=== PATIENT | female | born 1965 | race Caucasian/White ===

== ENCOUNTER 2016-06-28 09:12 | Day surgery (SDC) | payer OTHER ==
[2016-06-27 12:55] VITALS: BMI 26.6
[2016-06-28 11:18] VITALS: TEMP 98.1
[2016-06-28 11:48] VITALS: BP 109/68; PULSE 63
== END 2016-06-28 11:48 | disposition home or self-care (01) ==
LOC: JASU-ENDO 09:12
PROVIDERS: ATTEND Internal Medicine Gastroenterology
PROC: 0DJ08ZZ Inspection of Upper Intestinal Tract, Via Natural or Artificial Opening Endoscopic (ICD-10-PCS; principal; 2016-06-28 09:30)
DX: K22.2 Esophageal obstruction (principal)
CPT/HCPCS: 84703

== ENCOUNTER 2016-09-06 10:03 | Day surgery (SDC) | payer OTHER ==
[2016-09-06 11:06] VITALS: BMI 25.8
[2016-09-06] MEDS ORDERED: TRIAMCINOLONE ACET 40MG/1ML VIAL ONE (11:39)
[2016-09-06] MEDS ORDERED: PROPOFOL 40 ML ONE (12:14)
[2016-09-06] MEDS ORDERED: LIDOCAINE HCL/PF 2% SDV 5ML VIAL ONE (12:14)
[2016-09-06 13:01] VITALS: TEMP 97.5
[2016-09-06 14:16] VITALS: BP 128/82; PULSE 70
== END 2016-09-06 13:50 | disposition home or self-care (01) ==
LOC: JASU-ENDO 10:03
PROVIDERS: ATTEND Internal Medicine Gastroenterology
PROC: 0D738ZZ Dilation of Lower Esophagus, Via Natural or Artificial Opening Endoscopic (ICD-10-PCS; principal; 2016-09-06 10:30)
DX: K22.2 Esophageal obstruction (principal)
CPT/HCPCS: 84703

== ENCOUNTER 2017-03-21 12:35 | Inpatient (IN) | payer OTHER ==
--- NOTE | 2017-03-21 13:27 | PDOC ---
History of Present Illness <Tori Malhotra - Last Filed: 03/21/17 17:13> - General History Source: Patient Exam Limitations: No Limitations - History of Present Illness Initial Comments: 03/21/17 17:14 The patient is a 52 year old female, with a significant past medical history of Esophageal stricture, HIV (undetectable viral load, on HAART therapy), Anemia, HTN, HLD, Depression who presents to the emergency department with burning epigastric pain and globus sensation for the past 2 days. Patient reports eating chicken nuggets 2 days ago and experienced sudden onset of throat pain secondary to food stuck in her throat. Patient states her pain is similar to what she experiences with esophageal strictures. Patient reports multiple episodes of nausea, vomiting (foamy,nonbloody, nonbilious) since yesterday with fever (Tmax 100.3) and chills. Patient visited PCP at [facility] and was sent in for further evaluation. She denies headache or dizziness. She denies diarrhea or constipation. She denies dysuria, frequency, urgency or hematuria. Allergies: NKA Past surgical history: None Social history: Current everyday smoker, cocaine use PCP: Dulce Jaime <Bridget Prado - Last Filed: 03/21/17 17:16> - General Chief Complaint: Chest Pain Stated Complaint: CHEST PAIN VOMITING Time Seen by Provider: 03/21/17 13:01 Past History - Past Medical History Anemia: Yes Asthma: No Cancer: No Cardiac Disorders: No CVA: No COPD: No CHF: No Dementia: No Diabetes: No GI Disorders: Yes (STRCTURE OF THE ESOPHAGUS,GASTRITIS) Disorders: No HTN: Yes Hypercholesterolemia: Yes Liver Disease: No Seizures: No Thyroid Disease: No Lung CA: Yes (depression) - Surgical History Abdominal Surgery: No Appendectomy: No Cardiac Surgery: No Cholecystectomy: Yes Lung Surgery: No Neurologic Surgery: No Orthopedic Surgery: No - Suicide/Smoking/Psychosocial Hx Smoking History: Current every day smoker Have you smoked in the past 12 months: Yes Number of Cigarettes Smoked Daily: 1 Cigars Per Day: 0 Information on smoking cessation initiated: No 'Breaking Loose' booklet given: 06/28/16 Hx Alcohol Use: No Drug/Substance Use Hx: Yes Substance Use Type: Cocaine (no use x 3 d) Hx Substance Use Treatment: Yes ([facility]) <Tori Malhotra - Last Filed: 03/21/17 17:13> <Bridget Prado - Last Filed: 03/21/17 17:16> - Past Medical History Allergies/Adverse Reactions: Allergies Allergy/AdvReac Type Severity Reaction Status Date / Time No Known Allergies Allergy Verified 03/21/17 13:26 Home Medications: Ambulatory Orders Methadone [Dolophine -] 180 mg PO DAILY 06/27/16 Multivitamin-Min/Iron/FA/Vit K [Multi For Her Softgel] 1 each PO DAILY #30 capsule 09/12/16 Acetaminophen [Tylenol .Regular Strength -] 650 mg PO Q6H PRN #60 tablet Docusate Sodium [Colace -] 100 mg PO TID #90 capsule 01/11/17 Dolutegravir Sodium [Tivicay] 50 mg PO DAILY #30 tablet 01/11/17 Emtricitabine/Tenofov Alafenam [Descovy 200-25 mg Tablet] 1 each PO DAILY #30 tablet 01/11/17 Arm Brace [Wrist Brace] 1 each ASDIR #1 each 01/16/17 Mirtazapine [Remeron -] 30 mg PO HS #7 tablet 02/20/17 Polyethylene Glycol 3350 [Miralax 119 gm Btl -] 17 gm PO DAILY PRN #1 bottle 04/28 Quetiapine Fumarate [Seroquel -] 200 mg PO BID #14 tab 02/20/17 Emtricitabine/Tenofov Alafenam [Descovy 200-25 mg Tablet] 1 each PO DAILY Review of Systems - Review of Systems Able to Perform ROS?: Yes Comments:: 03/21/17 17:15 GENERAL/CONSTITUTIONAL: +fever, chills. No weakness. HEAD, EYES, EARS, NOSE AND THROAT: No change in vision. No ear pain or discharge. No sore throat. GASTROINTESTINAL: +nausea, vomiting. +epigastric abdominal pain. No diarrhea or constipation. GENITOURINARY: No dysuria, frequency, or change in urination. CARDIOVASCULAR: No chest pain or shortness of breath. RESPIRATORY: No cough, wheezing, or hemoptysis. MUSCULOSKELETAL: No joint or muscle swelling or pain. No neck or back pain. SKIN: No rash NEUROLOGIC: No headache, vertigo, loss of consciousness, or change in strength/ sensation. ENDOCRINE: No increased thirst. No abnormal weight change. HEMATOLOGIC/LYMPHATIC: No anemia, easy bleeding, or history of blood clots. ALLERGIC/IMMUNOLOGIC: No hives or skin allergy. <JohanBridget - Last Filed: 03/21/17 17:16> *Physical Exam - Vital Signs Last Vital Signs Temp Pulse Resp BP Pulse Ox 100.3 F H 129 H 28 H 142/98 99 03/21/17 13:01 03/21/17 13:01 03/21/17 13:01 03/21/17 13:01 03/21/17 13:01 <Tori Malhotra - Last Filed: 03/21/17 17:13> - Vital Signs Last Vital Signs Temp Pulse Resp BP Pulse Ox 100.3 F H 129 H 28 H 142/98 99 03/21/17 13:01 03/21/17 13:01 03/21/17 13:01 03/21/17 13:01 03/21/17 13:01 - Physical Exam Comments: 03/21/17 17:15 GENERAL: Awake, alert, and fully oriented, in no acute distress HEAD: No signs of trauma EYES: PERRLA, EOMI, sclera anicteric, conjunctiva clear ENT: Auricles normal inspection, hearing grossly normal, nares patent, oropharynx clear without exudates. Moist mucosa NECK: Normal ROM, supple, no lymphadenopathy, JVD, or masses LUNGS: Breath sounds equal, clear to auscultation bilaterally. No wheezes, and no crackles HEART: Regular rate and rhythm, normal S1 and S2, no murmurs, rubs or gallops ABDOMEN: Soft, nontender, normoactive bowel sounds. No guarding, no rebound. No masses EXTREMITIES: Normal range of motion, no edema. No clubbing or cyanosis. No cords , erythema, or tenderness BACK: No midline spinal tenderness in cervical/thoracic/lumbar region NEUROLOGICAL: Normal speech, cranial nerves intact, negative pronator drift, 5/ 5 strength in all 4 extremities, normal sensation to light touch in all 4 extremities, normal cerebellar exam, normal gait, normal reflexes and tone SKIN: Warm, Dry, normal turgor, no rashes or lesions noted. <Bridget Prado - Last Filed: 03/21/17 17:16> Heart Score/ECG Review #1 03/21/17 17:13 Twelve-lead EKG was performed and reviewed by me. Normal sinus rhythm, rate 89, normal axis and intervals. No ST elevations. No T-wave inversions. <Tori Malhotra - Last Filed: 03/21/17 17:13> ED Treatment Course - LABORATORY CBC & Chemistry Diagram: 03/21/17 14:00 03/21/17 14:00 <Tori Malhotra - Last Filed: 03/21/17 17:13> - LABORATORY CBC & Chemistry Diagram: 03/21/17 14:00 03/21/17 14:00 - ADDITIONAL ORDERS Additional order review: 03/21/17 14:00 RBC 5.00 MCV 79.5 L MCHC 32.0 RDW 14.5 D MPV 7.8 Neutrophils % 80.7 D Lymphocytes % 12.0 D Monocytes % 6.8 Eosinophils % 0.4 Basophils % 0.1 <Bridget Prado - Last Filed: 03/21/17 17:16> Medical Decision Making - Critical Care Time Total Critical Care Time (minutes): 30 Critical Care Statement: The care of this patient involved high complexity decision making to prevent further life threatening deterioration of the patient 's condition and/or to evaluate & treat vital organ system(s) failure or risk of failure. - Medical Decision Making 03/21/17 13:57 52-year-old female with a history of esophageal stricture presents with globus sensation and chest pain after eating a chicken nugget a few days ago. Vitals are remarkable for fever to 100.3 and tachycardia to the 120s. Concern for food impaction and possibly for esophageal rupture. Discussed the patient with Dr. Pena, her GI doctor, who will take her to the endoscopy suite now. In the meantime, will give fluids, antipyretics and broad abx coverage. -labs -ivf -abx -tylenol IV -CXR to eval for pneumomediastinum -admit 03/21/17 16:00 Repeat temperature 99. Repeat heart rate 80 after fluids, antibiotics and antipyretics. Patient will be taken to the endoscopy suite with Dr. Pena. I signed the patient out to Su[facility]/Dr. Demi mueller for further management Case discussed in detail with admitting physician including history, physical exam and ancillary studies. Admitting physician has assumed care for the patient, will follow all pending diagnostics and will complete the evaluation and treatment. <Tori Malhotra - Last Filed: 03/21/17 17:13> - Medical Decision Making 03/21/17 14:17 Dr. Pena paged via phone answering service. Awaiting call back. 03/21/17 14:51 Dr. Pena returned the page and patients case was discussed <Bridget Prado - Last Filed: 03/21/17 17:16> *DC/Admit/Observation/Transfer - Discharge Dispostion Admit: Yes - Attestations Physician Attestion: 03/21/17 16:02 I, Dr. Tori Malhotra MD, attest that this document has been prepared under my direction and personally reviewed by me in its entirety. I further attest, that it accurately reflects all work, treatment, procedures and medical decision -making performed by me. <Tori Malhotra - Last Filed: 03/21/17 17:13> - Attestations Scribe Attestion: 03/21/17 17:15 Documentation prepared by Bridget Prado, acting as medical care evaluation specialist for Tori Malhotra MD <Bridget Prado - Last Filed: 03/21/17 17:16> Diagnosis at time of Disposition: Chest pain - Discharge Dispostion Condition at time of disposition: Stable
[2017-03-21] MEDS ORDERED: SODIUM CHLORIDE 0.9% 500 ML INFUS.BAG IV ONE ×2 (13:29→15:12)
[2017-03-21] MEDS ORDERED: ACETAMINOPHEN 1000 MG/100 ML VIAL (NON FORMULARY) IVPB ONE (13:29)
[2017-03-21] MEDS ORDERED: ONDANSETRON 4 MG/2 ML VIAL IVPUSH ONE (13:30)
[2017-03-21] MEDS ORDERED: VANCOMYCIN 1,000 MG in DEXTROSE 5%-WATER - 250 ML IVPB ONE (13:30)
[2017-03-21] MEDS ORDERED: PIPERACILLIN/TAZOB 4.5 GM 4.5 GM in DEXTROSE 5%-WATER - 100 ML IVPB ONE (13:30)
[2017-03-21 14:05] LABS: BASOPHIL 0.1 % (0-2.0); EOSINOPHIL 0.4 % (0-4.5); MCH 25.5 pg (25.7-33.7); MEAN CELL VOLUME 79.5 fl (80-96); MEAN PLT VOLUME 7.8 fl (7.5-11.1); NEUTROPHILS 80.7 % (42.8-82.8); PLATELET COUNT 184 K/MM3 (134-434); RDW 14.5 % (11.6-15.6); WHITE BLOOD COUNT 3.9 K/mm3 (4.0-10.0)
[2017-03-21] MEDS ORDERED: VANCOMYCIN 1 GRAM (PRE-DOCKED) 250 ML IVPB ONE ×3 (14:17→14:19)
[2017-03-21] MEDS ORDERED: ONDANSETRON 4 MG/2 ML VIAL ONE ×2 (14:17→16:26)
[2017-03-21] MEDS ORDERED: PIPERACILLIN/TAZOB 4.5 GM 100 ML IVPB ONE (14:19)
[2017-03-21 14:31] LABS: ALBUMIN 3.3 g/dl (3.4-5.0); ALK PHOS 92 U/L (45-117); ANION GAP 10 (8-16); BILIRUBIN,TOTAL 0.2 mg/dL (0.2-1.0); CALCIUM 8.7 mg/dL (8.5-10.1); CO2 28 mmol/L (21-32); CREATININE 0.7 mg/dL (0.55-1.02); GLUCOSE,RANDOM 167 mg/dL (74-106); MAGNESIUM 2.1 mg/dL (1.8-2.4); SGOT/AST 30 U/L (15-37); SGPT/ALT 25 U/L (12-78); TOT PROT 7.9 g/dl (6.4-8.2)
[2017-03-21 14:34] LABS: TROPONIN I < 0.02 ng/ml (0.00-0.05)
[2017-03-21 14:43] LABS: INR 1.09 (0.82-1.09)
[2017-03-21 14:46] LABS: ACTIVATED PTT 30.4 SECONDS (26.9-34.4)
[2017-03-21] MEDS ORDERED: PROMETHAZINE HCL 25 MG/1 ML VIAL IVPUSH PRN ×2 (15:32→18:58)
[2017-03-21] MEDS ORDERED: ONDANSETRON 4 MG/2 ML VIAL IVPUSH PRN ×2 (15:32→18:58)
[2017-03-21] MEDS ORDERED: LACTATED RINGERS SOLUTION 1,000 ML IV SCH (15:45)
[2017-03-21] MEDS ORDERED: ACETAMINOPHEN 325 MG TABLET (FP) PO PRN ×3 (15:49→19:42)
[2017-03-21] MEDS ORDERED: DEXAMETHASONE SOD PHOSPHATE 10 MG/1 ML VIAL ONE (16:26)
[2017-03-21] MEDS ORDERED: SUCCINYLCHOLINE CHLORIDE 200 MG/10 ML VIAL ONE (16:26)
[2017-03-21] MEDS ORDERED: PROPOFOL 20 ML ONE (16:26)
[2017-03-21] MEDS ORDERED: LIDOCAINE HCL/PF 2% SDV 5ML VIAL ONE (16:27)
[2017-03-21] MEDS ORDERED: METOPROLOL TARTRATE 5 MG/5 ML VIAL ONE (16:53)
--- NOTE | 2017-03-21 17:13 | CON.GI ---
Consult Consult Specialty:: gastroenterology - History of Present Illness Chief Complaint: food impaction History of Present Illness: 03/21/17 17:14 The patient is a 52 year old female, with a significant past medical history of Esophageal stricture, HIV (undetectable viral load, on HAART therapy), Anemia, HTN, HLD, Depression who presents to the emergency department with burning epigastric pain and globus sensation for the past 2 days. Patient reports eating chicken nuggets 2 days ago and experienced sudden onset of throat pain secondary to food stuck in her throat. Patient states her pain is similar to what she experiences with esophageal strictures. Patient reports multiple episodes of nausea, vomiting (foamy,nonbloody, nonbilious) since yesterday with fever (Tmax 100.3) and chills. Patient visited PCP at [facility] and was sent in for further evaluation. - Past Medical History ...LMP: 06/14/16 - Alcohol/Substance Use Hx Alcohol Use: No - Smoking History Smoking history: Current every day smoker Have you smoked in the past 12 months: Yes Aproximately how many cigarettes per day: 1 Home Medications - Allergies Allergies/Adverse Reactions: Allergies Allergy/AdvReac Type Severity Reaction Status Date / Time No Known Allergies Allergy Verified 03/21/17 13:26 - Home Medications Home Medications: Ambulatory Orders Methadone [Dolophine -] 180 mg PO DAILY 06/27/16 Multivitamin-Min/Iron/FA/Vit K [Multi For Her Softgel] 1 each PO DAILY #30 capsule 09/12/16 Acetaminophen [Tylenol .Regular Strength -] 650 mg PO Q6H PRN #60 tablet Docusate Sodium [Colace -] 100 mg PO TID #90 capsule 01/11/17 Dolutegravir Sodium [Tivicay] 50 mg PO DAILY #30 tablet 01/11/17 Emtricitabine/Tenofov Alafenam [Descovy 200-25 mg Tablet] 1 each PO DAILY #30 tablet 01/11/17 Arm Brace [Wrist Brace] 1 each ASDIR #1 each 01/16/17 Mirtazapine [Remeron -] 30 mg PO HS #7 tablet 02/20/17 Polyethylene Glycol 3350 [Miralax 119 gm Btl -] 17 gm PO DAILY PRN #1 bottle 04/28 Quetiapine Fumarate [Seroquel -] 200 mg PO BID #14 tab 02/20/17 Emtricitabine/Tenofov Alafenam [Descovy 200-25 mg Tablet] 1 each PO DAILY Family Disease History - Family Disease History Family Disease History: Diabetes: Mother Physical Exam-GI Vital Signs: Vital Signs Temperature 99.7 F H 03/21/17 15:00 Pulse Rate 80 03/21/17 15:00 Respiratory Rate 18 03/21/17 15:00 Blood Pressure 124/78 03/21/17 15:00 O2 Sat by Pulse Oximetry (%) 100 03/21/17 15:00 Constitutional: Yes: Well Nourished Eyes: Yes: Conjunctiva Clear HENT: Yes: Normocephalic Neck: Yes: Trachea Midline Cardiovascular: Yes: Regular Rate and Rhythm Respiratory: Yes: CTA Bilaterally ...Palpate: Yes: Soft, Tenderness, Epigastium. No: Firm/Rigid, Guarding, Hepatomegaly, Mass, Pulsatile Mass, Splenomegaly Labs: INR, PTT INR 1.09 (0.82-1.09) 03/21/17 14:00 Imaging - Results Chest X-ray: Report Reviewed (--normal) Problem List - Problems (1) Dysphagia Assessment/Plan: associated with tachycardia and low grade temperature r/o aspiration R> for emergent EGD in view of patients esophageal stricture with difficulty of dilating safely she will be a ghood candidate for temporary fully covered metallic stent insertion continue antibiotics Code(s): R13.10 - DYSPHAGIA, UNSPECIFIED
--- NOTE | 2017-03-21 18:07 | HP ---
CHIEF COMPLAINT: chest pain PCP: Dr. Joy HISTORY OF PRESENT ILLNESS: This is a 52 year old female with a past medical history of HIV on HARRT, HTN, HLD, esophageal stricture, presents to the emergency room with c/o chest pain/ discomfort, burning sensation for the past two days after eating chicken nuggets. Patient states that the feeling is similar to her episodes of esophageal spasm, but this episode is the worst. Patient states that this discomfort is accompanied with nausea and non bloody, non bilious vomiting, cough and sob. These symptoms provoked her to go to her primary. At her primary , patient endorses a temp of 103, she was then advised to go to the ER. Patient denies ISAACS, palpitations, abdominal pain, diarrhea, urinary symptoms. ER course was notable for: dyspniec, tachycardic, elevated lactic acid. Recent Travel: no PAST MEDICAL HISTORY: as above PAST SURGICAL HISTORY: Social History: Smoking:daily smoker 1-2 cigs per day Alcohol:no Drugs: yes cocain; on methadone Family History: Allergies No Known Allergies Allergy (Verified 03/21/17 13:26) HOME MEDICATIONS: Home Medications Medication Instructions Recorded Methadone [Dolophine -] 180 mg PO DAILY 06/27/16 Multivitamin-Min/Iron/FA/Vit K 1 each PO DAILY #30 capsule 09/12/16 [Multi For Her Softgel] Acetaminophen [Tylenol .Regular 650 mg PO Q6H PRN #60 tablet 10/20/16 Strength -] Docusate Sodium [Colace -] 100 mg PO TID #90 capsule 01/11/17 Dolutegravir Sodium [Tivicay] 50 mg PO DAILY #30 tablet 01/11/17 Emtricitabine/Tenofov Alafenam 1 each PO DAILY #30 tablet 01/11/17 [Descovy 200-25 mg Tablet] Arm Brace [Wrist Brace] 1 each ASDIR #1 each 01/16/17 Mirtazapine [Remeron -] 30 mg PO HS #7 tablet 02/20/17 Polyethylene Glycol 3350 [Miralax 17 gm PO DAILY PRN #1 bottle 02/20/17 119 gm Btl -] Quetiapine Fumarate [Seroquel -] 200 mg PO BID #14 tab 02/20/17 Emtricitabine/Tenofov Alafenam 1 each PO DAILY 03/21/17 [Descovy 200-25 mg Tablet] REVIEW OF SYSTEMS CONSTITUTIONAL: Absent: fever, chills, diaphoresis, generalized weakness, malaise, loss of appetite, weight change HEENT: Absent: rhinorrhea, nasal congestion, throat pain, throat swelling, difficulty swallowing, mouth swelling, ear pain, eye pain, visual changes CARDIOVASCULAR: Positive: chest pain Absent: syncope, palpitations, irregular heart rate, lightheadedness, peripheral edema RESPIRATORY: Positive: non productive cough, sob Absent:dyspnea with exertion, orthopnea, wheezing, stridor, hemoptysis GASTROINTESTINAL: Positive: nausea, vomiting Absent: abdominal pain, abdominal distension, diarrhea, constipation, melena, hematochezia GENITOURINARY: Absent: dysuria, frequency, urgency, hesitancy, hematuria, flank pain, genital pain MUSCULOSKELETAL: Absent: myalgia, arthralgia, joint swelling, back pain, neck pain SKIN: Absent: rash, itching, pallor HEMATOLOGIC/IMMUNOLOGIC: Absent: easy bleeding, easy bruising, lymphadenopathy, frequent infections ENDOCRINE: Absent: unexplained weight gain, unexplained weight loss, heat intolerance, cold intolerance NEUROLOGIC: Absent: headache, focal weakness or paresthesias, dizziness, unsteady gait, seizure, mental status changes, bladder or bowel incontinence PSYCHIATRIC: Absent: anxiety, depression, suicidal or homicidal ideation, hallucinations. PHYSICAL EXAMINATION Vital Signs - 24 hr 03/21/17 03/21/17 17:02 17:15 Temperature 98.8 F Pulse Rate 84 83 Respiratory 16 16 Rate Blood Pressure 155/94 165/86 O2 Sat by Pulse 97 98 Oximetry (%) GENERAL: Awake, alert, and fully oriented, still with discomfort HEAD: Normal with no signs of trauma. EYES: Pupils equal, round and reactive to light, extraocular movements intact, sclera anicteric, conjunctiva clear. No lid lag. EARS, NOSE, THROAT: Ears normal, nares patent, oropharynx clear without exudates. Moist mucous membranes. NECK: Normal range of motion, supple without lymphadenopathy, JVD, or masses. LUNGS: decreased breath sounds ; scattered rhonchi throughout bilateral lung lambert, mild wheeze bilateral apex HEART: Regular rate and rhythm, normal S1 and S2 without murmur, rub or gallop. ABDOMEN: Soft, nontender, not distended, normoactive bowel sounds, no guarding, no rebound, no masses. No hepatomegaly or splenomegaly. MUSCULOSKELETAL: Normal range of motion at all joints. No bony deformities or tenderness. No CVA tenderness. UPPER EXTREMITIES: 2+ pulses, warm, well-perfused. No cyanosis. No clubbing. No peripheral edema. LOWER EXTREMITIES: 2+ pulses, warm, well-perfused. No calf tenderness. No peripheral edema. NEUROLOGICAL: Cranial nerves II-XII intact. Normal speech. Normal gait. PSYCHIATRIC: Cooperative. Good eye contact. Appropriate mood and affect. SKIN: Warm, dry, normal turgor, no rashes or lesions noted, normal capillary refill. ASSESSMENT/PLAN: This is a 52 year old female with a past medical history of HTN, HLD, HIV on harrt, esophageal stricture presents with chest discomfort/burning, with sob and nonproductive cough, admitted for sepsis secondary to aspiration pneumonia. #Sepsis secondary Aspiration pneumonia with esophageal stricture ; r/o malignancy other etiology -NPO -anti emetic -IVF -EGD; -IV antibiotic; Unasyn 3g IVPB q 6h #HIV: -cont HARRT #HTN: -cont home meds #hx opiod abuse: -on methadone Disposition: med surg; cont iv antibiotic Full H&P to follow; Visit type - Emergency Visit Emergency Visit: Yes ED Registration Date: 03/21/17 Care time: The patient presented to the Emergency Department on the above date and was hospitalized for further evaluation of their emergent condition. - New Patient This patient is new to me today: Yes Date on this admission: 03/22/17 - Critical Care Critical Care patient: No
--- NOTE | 2017-03-21 18:22 | PN ---
Teaching Attending Note Name of Resident: Pablo Zamora ATTENDING PHYSICIAN STATEMENT I saw and evaluated the patient. I reviewed the resident's note and discussed the case with the resident. I agree with the resident's findings and plan as documented. SUBJECTIVE: OBJECTIVE: Vital Signs Period Temp Pulse Resp BP Sys/Lester Pulse Ox Last 24 Hr 98.8 F-100.3 F 80-129 16-28 124-165/78-98 97-100 ASSESSMENT AND PLAN:
[2017-03-21] MEDS ORDERED: POLYETHYLENE GLYCOL 3350 119 GM BTL PO PRN (19:42)
[2017-03-21] MEDS: LACTATED RINGERS SOLUTION 1,000 ML IV SCH (20:00)
[2017-03-21] MEDS: AMPICILLIN NA/SULBACTAM NA 3 GM in SODIUM CHLORIDE 100 ML IVPB SCH ×2 (21:16)
--- NOTE | 2017-03-21 21:40 | HP ---
CHIEF COMPLAINT: Burning pain and something caught in the throat PCP: Dulce Jaime HISTORY OF PRESENT ILLNESS: The patient is a 52 yo f w/ PMH esophageal stricture, HIV on HAART, HTN, HLD presents to the ED c/o burning epigastric pain and Nausea and NBNB vomiting for the past 2 days. The patient states that she was eating chicken nuggets 2 days ago when she felt a sudden onset epigastric burning as well as a sensation that there was "food stuck in her throat." The patient states that this pain was similar to previous episodes when her strictures caused her trouble, but this particular sensation was "the worst yet." One day later, the patient began to develop nausea and NBNB emesis which prompted her to visit her PCP. At her PCP, she was found to have a fever and was sent to the ED for evaluation. Patient denies chills, dizziness, diarrhea, urinary frequency, urinary urgency or hematuria. ER course was notable for: (1) low grade fever 100.8, Tachycardia 129, Respiratory rate 28 (2) lactic acidosis 2.4 (3) zofran, zosyn, vancomycin Recent Travel: PAST MEDICAL HISTORY: see above -depression -anemia PAST SURGICAL HISTORY: none Social History: Smokin-2 cigs per day currently Alcohol: denies Drugs: cocaine; last use 3 days ago Family History: non-contributory Allergies No Known Allergies Allergy (Verified 03/21/17 13:26) HOME MEDICATIONS: Home Medications Medication Instructions Recorded Methadone [Dolophine -] 180 mg PO DAILY 06/27/16 Multivitamin-Min/Iron/FA/Vit K 1 each PO DAILY #30 capsule 09/12/16 [Multi For Her Softgel] Acetaminophen [Tylenol .Regular 650 mg PO Q6H PRN #60 tablet 10/20/16 Strength -] Docusate Sodium [Colace -] 100 mg PO TID #90 capsule 01/11/17 Dolutegravir Sodium [Tivicay] 50 mg PO DAILY #30 tablet 01/11/17 Emtricitabine/Tenofov Alafenam 1 each PO DAILY #30 tablet 01/11/17 [Descovy 200-25 mg Tablet] Arm Brace [Wrist Brace] 1 each ASDIR #1 each 01/16/17 Mirtazapine [Remeron -] 30 mg PO HS #7 tablet 02/20/17 Polyethylene Glycol 3350 [Miralax 17 gm PO DAILY PRN #1 bottle 02/20/17 119 gm Btl -] Quetiapine Fumarate [Seroquel -] 200 mg PO BID #14 tab 02/20/17 Emtricitabine/Tenofov Alafenam 1 each PO DAILY 03/21/17 [Descovy 200-25 mg Tablet] REVIEW OF SYSTEMS CONSTITUTIONAL: Absent: chills, diaphoresis, generalized weakness, malaise, loss of appetite, weight change HEENT: Absent: rhinorrhea, nasal congestion, throat pain, throat swelling, difficulty swallowing, mouth swelling, ear pain, eye pain, visual changes CARDIOVASCULAR: Absent: chest pain, syncope, palpitations, irregular heart rate, lightheadedness , peripheral edema RESPIRATORY: Absent: cough, shortness of breath, dyspnea with exertion, orthopnea, wheezing, stridor, hemoptysis GASTROINTESTINAL: Absent: abdominal pain, abdominal distension, diarrhea, constipation, melena, hematochezia GENITOURINARY: Absent: dysuria, frequency, urgency, hesitancy, hematuria, flank pain, genital pain MUSCULOSKELETAL: Absent: myalgia, arthralgia, joint swelling, back pain, neck pain SKIN: Absent: rash, itching, pallor HEMATOLOGIC/IMMUNOLOGIC: Absent: easy bleeding, easy bruising, lymphadenopathy, frequent infections ENDOCRINE: Absent: unexplained weight gain, unexplained weight loss, heat intolerance, cold intolerance NEUROLOGIC: Absent: headache, focal weakness or paresthesias, dizziness, unsteady gait, seizure, mental status changes, bladder or bowel incontinence PSYCHIATRIC: Absent: anxiety, suicidal or homicidal ideation, hallucinations. PHYSICAL EXAMINATION Vital Signs - 24 hr 03/21/17 03/21/17 03/21/17 17:02 17:15 17:30 Temperature 98.8 F Pulse Rate 84 83 78 Respiratory 16 16 16 Rate Blood Pressure 155/94 165/86 146/83 O2 Sat by Pulse 97 98 99 Oximetry (%) 03/21/17 03/21/17 03/21/17 17:45 18:15 18:30 Temperature Pulse Rate 77 77 77 Respiratory 18 18 18 Rate Blood Pressure 161/89 157/88 161/83 O2 Sat by Pulse 99 98 98 Oximetry (%) 03/21/17 03/21/17 03/21/17 18:45 19:00 19:15 Temperature Pulse Rate 75 76 76 Respiratory 18 18 16 Rate Blood Pressure 168/84 161/85 164/77 O2 Sat by Pulse 95 99 98 Oximetry (%) 03/21/17 03/21/17 19:30 19:45 Temperature 98.8 F Pulse Rate 76 78 Respiratory 18 20 Rate Blood Pressure 159/77 151/84 O2 Sat by Pulse 98 Oximetry (%) GENERAL: Awake, alert, and fully oriented, in no acute distress. HEAD: Normal with no signs of trauma. EYES: Pupils equal, round and reactive to light, extraocular movements intact, sclera anicteric, conjunctiva clear. No lid lag. NECK: Normal range of motion, supple , no JVD. LUNGS: Breath sounds equal, clear to auscultation bilaterally. No wheezes, and no crackles. No accessory muscle use. HEART: Regular rate and rhythm, normal S1 and S2 without murmur, rub or gallop. ABDOMEN: Soft, tenderness to palpation in epigastrium, not distended, normoactive bowel sounds, no guarding, no rebound, no masses. No hepatomegaly or splenomegaly. UPPER EXTREMITIES: 2+ pulses, warm, well-perfused. No cyanosis. No clubbing. No peripheral edema. LOWER EXTREMITIES: 2+ pulses, warm, well-perfused. No calf tenderness. No peripheral edema. NEUROLOGICAL: Cranial nerves II-X intact. Normal speech. gait not observed. PSYCHIATRIC: Cooperative. Good eye contact. Appropriate mood and affect. SKIN: Warm, dry, normal turgor, no rashes or lesions noted, normal capillary refill. ASSESSMENT/PLAN: The patient is a 52 yo f w/ PMH esophageal strictures and HIV who comes into the ED c/o burning epigastric pain as well as nausea and vomiting. #severe sepsis 2/2 aspiration pneumonia vs chemical pneumonitis r/o obstruction -Dr. Pena saw patient in ER -s/p EGD; f/u report -Protonix 40mg IV daily -unasyn 3g Q6H IV -repeat CXR in am to look for developing pulmonary process -tylenol 650mg Q4H PO PRN pain -IVF #Esophageal stricture -s/p EGD -f/u GI recs #HIV -as per patient, last viral load undetectable -c/w HAART #Anemia -h/h WNL -monitor #HTN -BP controlled -monitor #depression -c/w Home remeron 30mg PO HS -c/w home seroquel 200mg BID #substance abuse -Methadone 180mg PO daily -will verify dose in AM #FEN -LR @125 -monitor lytes -CLD #prophylaxsis -SCDs -Protonix 40mg IV daily #Dispo -admitted for IV ABX and treatment of esophageal strictures Problem List - Problem (1) Chest pain Code(s): R07.9 - CHEST PAIN, UNSPECIFIED (2) Esophageal stricture Code(s): K22.2 - ESOPHAGEAL OBSTRUCTION (3) HIV (human immunodeficiency virus infection) Code(s): Z21 - ASYMPTOMATIC HUMAN IMMUNODEFICIENCY VIRUS INFECTION STATUS (4) Depression Code(s): F32.9 - MAJOR DEPRESSIVE DISORDER, SINGLE EPISODE, UNSPECIFIED Visit type - Emergency Visit Emergency Visit: Yes ED Registration Date: 03/21/17 Care time: The patient presented to the Emergency Department on the above date and was hospitalized for further evaluation of their emergent condition. - New Patient This patient is new to me today: Yes Date on this admission: 03/21/17 - Critical Care Critical Care patient: No
--- NOTE | 2017-03-21 21:46 | EKG ---
Test Reason : Blood Pressure : / mmHG Vent. Rate : 089 BPM Atrial Rate : 089 BPM P-R Int : 152 ms QRS Dur : 076 ms QT Int : 374 ms P-R-T Axes : 044 065 053 degrees QTc Int : 455 ms NORMAL SINUS RHYTHM RSR' V2 WHEN COMPARED WITH ECG OF 17-JUL-2009 12:10, APPEARANCE OF RSR' IN V2 Confirmed by JUSTIN FLORES MD ([id number]) on 03/21/2017 9:46:02 PM Referred By: Confirmed By:JUSTIN FLORES MD
[2017-03-21] MEDS: PANTOPRAZOLE SODIUM 40 MG in SODIUM CHLORIDE 100 ML IVPB SCH (21:51)
[2017-03-21] MEDS ORDERED: MIRTAZAPINE 30 MG TABLET (FP) PO SCH (22:00)
[2017-03-21] MEDS ORDERED: MIRTAZAPINE 15 MG TABLET (FP) ONE (22:05)
[2017-03-21] MEDS: QUEtiapine FUMARATE 200 MG TABLET PO SCH (22:10)
[2017-03-21] MEDS: DOCUSATE SODIUM 100 MG CAPSULE (FP) PO SCH (22:10)
[2017-03-21 22:39] LABS: CPK 58 IU/L (26-192); TROPONIN I < 0.02 ng/ml (0.00-0.05)
[2017-03-22] MEDS: AMPICILLIN NA/SULBACTAM NA 3 GM in SODIUM CHLORIDE 100 ML IVPB SCH ×2 (02:42→08:58)
[2017-03-22] MEDS: DOCUSATE SODIUM 100 MG CAPSULE (FP) PO SCH ×3 (06:19→21:15)
--- NOTE | 2017-03-22 06:35 | PN ---
Physical Exam: SUBJECTIVE: Patient seen and examined at bedside. Patient feels better today but still complaining of epigastric pain. OBJECTIVE: Vital Signs Period Temp Pulse Resp BP Sys/Lester Pulse Ox Last 24 Hr 98.2 F-98.8 F 74-84 16-20 146-168/70-94 95-99 GENERAL: The patient is awake, alert, and fully oriented, in no acute distress. HEAD: Normal with no signs of trauma. EYES: extraocular movements intact, sclera anicteric, conjunctiva clear. No ptosis. NECK: Trachea midline, full range of motion, supple. LUNGS: Breath sounds equal, clear to auscultation bilaterally, no wheezes, no crackles, no accessory muscle use. HEART: Regular rate and rhythm, S1, S2 without murmur, rub or gallop. ABDOMEN: Soft, tenderness to palpation in the epigastrium, nondistended, normoactive bowel sounds, no guarding, no rebound, no hepatosplenomegaly, no masses. EXTREMITIES: 2+ pulses, warm, well-perfused, no edema. NEUROLOGICAL: Cranial nerves II through X grossly intact. Normal speech, gait not observed. PSYCH: Normal mood, normal affect. SKIN: Warm, dry, normal turgor, no rashes or lesions noted Laboratory Results - last 24 hr 03/21/17 03/21/17 20:50 21:30 Lactic Acid 0.9 Creatine Kinase 58 Troponin I < 0.02 Active Medications Generic Name Dose Route Start Last Admin Trade Name Freq PRN Reason Stop Dose Admin Acetaminophen 650 mg 03/21/17 18:58 Tylenol - PO Q4H PRN FEVER OR PAIN Acetaminophen 650 mg 03/21/17 19:42 Tylenol - PO Q6H PRN BACK PAIN Docusate Sodium 100 mg 03/21/17 22:00 03/22/17 06:19 Colace - PO 100 mg TID KENNEDI Administration Pantoprazole Sodium 40 mg/ 100 mls @ 200 mls/hr 03/21/17 18:45 03/21/17 21:51 Sodium Chloride IVPB 200 mls/hr DAILY KENNEDI Administration Ampicillin Sodium/Sulbactam 100 mls @ 200 mls/hr 03/21/17 19:00 03/22/17 02:42 Sodium 3 gm/ Sodium Chloride IVPB 200 mls/hr Q6H-IV KENNEDI Administration Lactated Ringer's 1,000 mls @ 125 mls/hr 03/21/17 18:58 03/21/17 20:00 Lactated Ringers Solution IV 125 mls/hr ASDIR KENNEDI Administration Methadone HCl 180 mg 03/22/17 10:00 Dolophine - PO DAILY KENNEDI Mirtazapine 30 mg 03/21/17 22:00 03/21/17 22:10 Remeron - PO 30 mg HS KENNEDI Administration Non-Formulary Medication 1 each 03/22/17 10:00 Emtricitabine/Tenofov Alafenam [Descovy 200-25 Mg Tablet] PO DAILY KENNEDI Polyethylene Glycol 17 gm 03/21/17 19:42 Miralax (For Daily Use) - PO DAILY PRN CONSTIPATION Quetiapine Fumarate 200 mg 03/21/17 22:00 03/21/17 22:10 Seroquel - PO 200 mg BID KENNEDI Administration ASSESSMENT/PLAN: The patient is a 52 yo f w/ PMH esophageal strictures and HIV who comes into the ED c/o burning epigastric pain as well as nausea and vomiting. #severe sepsis 2/2 aspiration pneumonia vs chemical pneumonitis- improved -Dr. Pena saw patient in ER -s/p EGD w/ dilation of esophageal stricture -Protonix 40mg IV daily -unasyn 3g Q6H IV d/c'd after negative rpt CXR; it is unlikely that there is an infectious process -repeat CXR negative -tylenol 650mg Q4H PO PRN pain -IVF #Esophageal stricture -s/p EGD w/ dilation -f/u GI recs #HIV -as per patient, last viral load undetectable -c/w HAART #Anemia -h/h WNL -monitor #HTN -BP controlled -monitor #depression -c/w Home remeron 30mg PO HS -c/w home seroquel 200mg BID #substance abuse -Methadone 180mg PO daily -will verify dose in AM #FEN -LR @125 -monitor lytes -CLD #prophylaxsis -SCDs -Protonix 40mg IV daily #Dispo -admitted for treatment of esophageal strictures. -transferred off of [facility] Problem List - Problems (1) Chest pain Code(s): R07.9 - CHEST PAIN, UNSPECIFIED (2) Esophageal stricture Code(s): K22.2 - ESOPHAGEAL OBSTRUCTION (3) HIV (human immunodeficiency virus infection) Code(s): Z21 - ASYMPTOMATIC HUMAN IMMUNODEFICIENCY VIRUS INFECTION STATUS (4) Depression Code(s): F32.9 - MAJOR DEPRESSIVE DISORDER, SINGLE EPISODE, UNSPECIFIED Visit type - Emergency Visit Emergency Visit: Yes ED Registration Date: 03/21/17 Care time: The patient presented to the Emergency Department on the above date and was hospitalized for further evaluation of their emergent condition. - New Patient This patient is new to me today: No - Critical Care Critical Care patient: No
[2017-03-22 06:40] LABS: BASOPHIL 0.1 % (0-2.0); EOSINOPHIL 0.1 % (0-4.5); MCH 25.8 pg (25.7-33.7); MCHC 32.6 g/dl (32.0-36.0); MEAN CELL VOLUME 79.1 fl (80-96); MEAN PLT VOLUME 7.6 fl (7.5-11.1); NEUTROPHILS 72.1 % (42.8-82.8); PLATELET COUNT 184 K/MM3 (134-434); RDW 14.3 % (11.6-15.6); WHITE BLOOD COUNT 4.4 K/mm3 (4.0-10.0)
[2017-03-22 06:58] VITALS: BMI 35.6
[2017-03-22 07:33] LABS: ALK PHOS 84 U/L (45-117); ANION GAP 8 (8-16); BILIRUBIN,TOTAL 0.3 mg/dL (0.2-1.0); CALCIUM 8.5 mg/dL (8.5-10.1); CO2 28 mmol/L (21-32); CREATININE 0.7 mg/dL (0.55-1.02); GLUCOSE,RANDOM 122 mg/dL (74-106); MAGNESIUM 2.3 mg/dL (1.8-2.4); PHOSPHOROUS 3.6 mg/dL (2.5-4.9); SGOT/AST 22 U/L (15-37); SGPT/ALT 21 U/L (12-78); TOT PROT 7.3 g/dl (6.4-8.2)
[2017-03-22] MEDS ORDERED: METHADONE 160 MG, METHADONE 20 MG PO SCH (08:15)
[2017-03-22] MEDS ORDERED: METHADONE HCL 10 MG TABLET ONE (08:39)
[2017-03-22] MEDS ORDERED: METHADONE HCL 40 MG DISPERSABLE TABLET ONE (08:40)
[2017-03-22] MEDS: QUEtiapine FUMARATE 200 MG TABLET PO SCH ×2 (09:05→23:46)
[2017-03-22] MEDS ORDERED: DOLUTEGRAVIR SODIUM 50 MG TABLET PO SCH (10:00)
[2017-03-22] MEDS ORDERED: METHADONE HCL 10 MG TABLET PO SCH (10:00)
[2017-03-22] MEDS ORDERED: PATIENT'S OWN MEDICATION (NON-FORMULARY) (Emtricitabine/Tenofov Alafenam [Descovy 200-25 M PO SCH (10:00)
[2017-03-22] MEDS ORDERED: PANTOPRAZOLE SODIUM 40 MG in SODIUM CHLORIDE 100 ML IVPB SCH (10:02)
--- NOTE | 2017-03-22 10:28 | PN ---
Teaching Attending Note Name of Resident: Pablo Zamora ATTENDING PHYSICIAN STATEMENT I saw and evaluated the patient. I reviewed the resident's note and discussed the case with the resident. I agree with the resident's findings and plan as documented. SUBJECTIVE: OBJECTIVE: Vital Signs Period Temp Pulse Resp BP Sys/Lester Pulse Ox Last 24 Hr 98.2 F-100.3 F 71-129 16-28 124-168/70-98 95-100 Current Medications Generic Name Dose Route Start Last Admin Trade Name Freq PRN Reason Stop Dose Admin Acetaminophen 650 mg 03/21/17 18:58 Tylenol - PO Q4H PRN FEVER OR PAIN Acetaminophen 650 mg 03/21/17 19:42 Tylenol - PO Q6H PRN BACK PAIN Docusate Sodium 100 mg 03/21/17 22:00 03/22/17 06:19 Colace - PO 100 mg TID KENNEDI Administration Ampicillin Sodium/Sulbactam 100 mls @ 200 mls/hr 03/21/17 19:00 03/22/17 08:58 Sodium 3 gm/ Sodium Chloride IVPB 200 mls/hr Q6H-IV KENNEDI Administration Lactated Ringer's 1,000 mls @ 125 mls/hr 03/21/17 18:58 03/21/17 20:00 Lactated Ringers Solution IV 125 mls/hr ASDIR KENNEDI Administration Pantoprazole Sodium 40 mg/ 100 mls @ 200 mls/hr 03/22/17 10:02 Sodium Chloride IVPB DAILY KENNEDI Methadone HCl 160 mg/ 180 mg 03/22/17 08:15 03/22/17 08:54 Methadone HCl 20 mg PO 180 mg DAILY@0600 KENNEDI Administration Mirtazapine 30 mg 03/21/17 22:00 03/21/17 22:10 Remeron - PO 30 mg HS KENNEDI Administration Non-Formulary Medication 1 each 03/22/17 10:00 Emtricitabine/Tenofov Alafenam [Descovy 200-25 Mg Tablet] PO DAILY KENNEDI Polyethylene Glycol 17 gm 03/21/17 19:42 Miralax (For Daily Use) - PO DAILY PRN CONSTIPATION Quetiapine Fumarate 200 mg 03/21/17 22:00 03/22/17 09:05 Seroquel - PO 200 mg BID KENNEDI Administration ASSESSMENT AND PLAN:
[2017-03-22] MEDS ORDERED: PT OWN MED DRAWER 7, Y5N ONE ×2 (14:25→21:01)
[2017-03-22] MEDS ORDERED: POLYETHYLENE GLYCOL 3350 119 GM BTL PO PRN (18:59)
[2017-03-22] MEDS ORDERED: ACETAMINOPHEN 325 MG TABLET (FP) PO PRN (18:59)
[2017-03-22] MEDS ORDERED: LACTATED RINGERS SOLUTION 1,000 ML IV SCH (18:59)
[2017-03-22] MEDS: PANTOPRAZOLE SODIUM 40 MG in SODIUM CHLORIDE 100 ML IVPB SCH (19:43)
[2017-03-22] MEDS: LACTATED RINGERS SOLUTION 1,000 ML IV SCH (19:44)
--- NOTE | 2017-03-22 20:06 | PN ---
GI Progress Note Subjective: tolerating diet - Objective Vital Signs: Vital Signs Temperature 98.2 F 03/22/17 19:36 Pulse Rate 67 03/22/17 19:36 Respiratory Rate 20 03/22/17 19:36 Blood Pressure 155/84 03/22/17 19:36 O2 Sat by Pulse Oximetry (%) 99 03/22/17 09:00 Constitutional: Well Nourished Eyes: Yes: Conjunctiva Clear HENT: Yes: Atraumatic Neck: Yes: Supple Cardiovascular: Yes: Regular Rate and Rhythm Respiratory: Yes: CTA Bilaterally Labs: CBC, BMP 03/22/17 06:05 03/22/17 06:05 INR, PTT INR 1.09 (0.82-1.09) 03/21/17 14:00 Problem List - Problems (1) Dysphagia Code(s): R13.10 - DYSPHAGIA, UNSPECIFIED
[2017-03-22] MEDS ORDERED: MIRTAZAPINE 15 MG TABLET (FP) ONE (21:00)
[2017-03-22] MEDS ORDERED: MIRTAZAPINE 30 MG TABLET (FP) PO SCH (22:00)
[2017-03-23] MEDS ORDERED: METHADONE 160 MG, METHADONE 20 MG PO SCH (06:00)
[2017-03-23] MEDS ORDERED: METHADONE HCL 40 MG DISPERSABLE TABLET ONE (06:17)
[2017-03-23] MEDS ORDERED: METHADONE HCL 10 MG TABLET ONE (06:17)
[2017-03-23] MEDS ORDERED: PT OWN MED DRAWER 7, Y5N ONE ×2 (06:18→09:23)
[2017-03-23] MEDS: DOCUSATE SODIUM 100 MG CAPSULE (FP) PO SCH (06:39)
--- NOTE | 2017-03-23 06:45 | PN ---
Physical Exam: SUBJECTIVE: Patient seen and examined at bedside. No new complaints, no events overnight. Patient states that her pain is improved today. OBJECTIVE: Vital Signs Period Temp Pulse Resp BP Sys/Lester Pulse Ox Last 24 Hr 97.8 F-98.5 F 59-72 18-20 114-161/59-95 99-99 GENERAL: The patient is awake, alert, and fully oriented, in no acute distress. HEAD: Normal with no signs of trauma. EYES: extraocular movements intact, sclera anicteric, conjunctiva clear. No ptosis. NECK: Trachea midline, full range of motion, supple. LUNGS: Breath sounds equal, clear to auscultation bilaterally, no wheezes, no crackles, no accessory muscle use. HEART: Regular rate and rhythm, S1, S2 without murmur, rub or gallop. ABDOMEN: Soft, tender to palpation in the epigastrium, nondistended, normoactive bowel sounds, no guarding, no rebound, no hepatosplenomegaly, no masses. EXTREMITIES: 2+ pulses, warm, well-perfused, no edema. NEUROLOGICAL: Cranial nerves II through X grossly intact. Normal speech, gait not observed. PSYCH: Normal mood, normal affect. SKIN: Warm, dry, normal turgor, no rashes or lesions noted Laboratory Results - last 24 hr 03/22/17 03/22/17 06:05 06:05 WBC 4.4 RBC 4.77 Hgb 12.3 Hct 37.7 MCV 79.1 L MCH 25.8 MCHC 32.6 RDW 14.3 Plt Count 184 MPV 7.6 Neutrophils % 72.1 Lymphocytes % 19.1 D Monocytes % 8.6 Eosinophils % 0.1 Basophils % 0.1 Sodium 139 Potassium 3.9 Chloride 103 Carbon Dioxide 28 Anion Gap 8 BUN 8 Creatinine 0.7 Creat Clearance w eGFR > 60 Random Glucose 122 H D Calcium 8.5 Phosphorus 3.6 Magnesium 2.3 Total Bilirubin 0.3 D AST 22 D ALT 21 Alkaline Phosphatase 84 Total Protein 7.3 Albumin 3.0 L Active Medications Generic Name Dose Route Start Last Admin Trade Name Freq PRN Reason Stop Dose Admin Acetaminophen 650 mg 03/22/17 18:59 Tylenol - PO Q6H PRN BACK PAIN Docusate Sodium 100 mg 03/22/17 22:00 03/23/17 06:39 Colace - PO 100 mg TID KENNEDI Administration Lactated Ringer's 1,000 mls @ 125 mls/hr 03/22/17 18:59 03/22/17 21:14 Lactated Ringers Solution IV Not Given ASDIR KENNEDI Pantoprazole Sodium 40 mg/ 100 mls @ 200 mls/hr 03/23/17 10:00 Sodium Chloride IVPB DAILY KENNEDI Methadone HCl 160 mg/ 180 mg 03/23/17 06:00 03/23/17 06:39 Methadone HCl 20 mg PO 180 mg DAILY@0600 KENNEDI Administration Mirtazapine 30 mg 03/22/17 22:00 03/22/17 21:15 Remeron - PO 30 mg HS KENNEDI Administration Polyethylene Glycol 17 gm 03/22/17 18:59 Miralax (For Daily Use) - PO DAILY PRN CONSTIPATION Quetiapine Fumarate 200 mg 03/22/17 22:00 03/22/17 23:46 Seroquel - PO 200 mg BID KENNEDI Administration ASSESSMENT/PLAN: The patient is a 52 yo f w/ PMH esophageal strictures and HIV who comes into the ED c/o burning epigastric pain as well as nausea and vomiting. #severe sepsis 2/2 aspiration pneumonia vs chemical pneumonitis- improved -Dr. Pena saw patient in ER -s/p EGD w/ dilation of esophageal stricture -Protonix 40mg IV daily -unasyn 3g Q6H IV d/c'd after negative rpt CXR; it is unlikely that there is an infectious process -tylenol 650mg Q4H PO PRN pain -IVF #Esophageal stricture -s/p EGD w/ dilation -f/u GI recs #HIV -as per patient, last viral load undetectable -c/w HAART #Anemia -h/h WNL -monitor #HTN -BP controlled -monitor #depression -c/w Home remeron 30mg PO HS -c/w home seroquel 200mg BID #substance abuse -Methadone 180mg PO daily -will verify dose in AM #FEN -LR @125 -monitor lytes -CLD #prophylaxsis -SCDs -Protonix 40mg IV daily #Dispo -admitted for treatment of esophageal strictures. -transferred off of [facility] Problem List - Problems (1) Chest pain Code(s): R07.9 - CHEST PAIN, UNSPECIFIED (2) Esophageal stricture Code(s): K22.2 - ESOPHAGEAL OBSTRUCTION (3) HIV (human immunodeficiency virus infection) Code(s): Z21 - ASYMPTOMATIC HUMAN IMMUNODEFICIENCY VIRUS INFECTION STATUS (4) Depression Code(s): F32.9 - MAJOR DEPRESSIVE DISORDER, SINGLE EPISODE, UNSPECIFIED
[2017-03-23 07:43] LABS: MCH 25.5 pg (25.7-33.7); MCHC 32.1 g/dl (32.0-36.0); MEAN CELL VOLUME 79.6 fl (80-96); MEAN PLT VOLUME 7.6 fl (7.5-11.1); PLATELET COUNT 199 K/MM3 (134-434); RDW 14.5 % (11.6-15.6); WHITE BLOOD COUNT 4.3 K/mm3 (4.0-10.0)
[2017-03-23 08:10] LABS: ALBUMIN 3.1 g/dl (3.4-5.0); ALK PHOS 92 U/L (45-117); ANION GAP 6 (8-16); BILIRUBIN,TOTAL 0.4 mg/dL (0.2-1.0); CALCIUM 8.2 mg/dL (8.5-10.1); CO2 33 mmol/L (21-32); CREATININE 0.8 mg/dL (0.55-1.02); GLUCOSE,RANDOM 94 mg/dL (74-106); MAGNESIUM 2.2 mg/dL (1.8-2.4); PHOSPHOROUS 3.4 mg/dL (2.5-4.9); SGOT/AST 28 U/L (15-37); SGPT/ALT 26 U/L (12-78); TOT PROT 7.3 g/dl (6.4-8.2)
[2017-03-23] MEDS: QUEtiapine FUMARATE 200 MG TABLET PO SCH (09:35)
[2017-03-23] MEDS ORDERED: PANTOPRAZOLE 40 MG TABLET (FP) PO SCH (10:00)
[2017-03-23] MEDS ORDERED: DOLUTEGRAVIR SODIUM 50 MG TABLET PO SCH (10:00)
[2017-03-23] MEDS ORDERED: PANTOPRAZOLE SODIUM 40 MG in SODIUM CHLORIDE 100 ML IVPB SCH (10:00)
[2017-03-23] MEDS ORDERED: NICOTINE 7 MG/24 HOURS TOPICAL PATCH TD SCH (10:00)
--- NOTE | 2017-03-23 12:21 | PN ---
Teaching Attending Note Name of Resident: Pablo Zamora ATTENDING PHYSICIAN STATEMENT I saw and evaluated the patient. I reviewed the resident's note and discussed the case with the resident. I agree with the resident's findings and plan as documented. SUBJECTIVE: OBJECTIVE: Vital Signs Period Temp Pulse Resp BP Sys/Lester Pulse Ox Last 24 Hr 97.8 F-98.5 F 59-72 18-20 114-161/59-95 99 Current Medications Generic Name Dose Route Start Last Admin Trade Name Freq PRN Reason Stop Dose Admin Acetaminophen 650 mg 03/22/17 18:59 Tylenol - PO Q6H PRN BACK PAIN Docusate Sodium 100 mg 03/22/17 22:00 03/23/17 06:39 Colace - PO 100 mg TID KENNEDI Administration Methadone HCl 160 mg/ 180 mg 03/23/17 06:00 03/23/17 06:39 Methadone HCl 20 mg PO 180 mg DAILY@0600 KENNEDI Administration Mirtazapine 30 mg 03/22/17 22:00 03/22/17 21:15 Remeron - PO 30 mg HS KENNEDI Administration Nicotine 7 mg 03/23/17 10:00 03/23/17 10:01 Nicoderm Patch - TD 7 mg DAILY KENNEDI Administration Pantoprazole Sodium 40 mg 03/23/17 10:00 03/23/17 09:35 Protonix - PO 40 mg DAILY KENNEDI Administration Polyethylene Glycol 17 gm 03/22/17 18:59 Miralax (For Daily Use) - PO DAILY PRN CONSTIPATION Quetiapine Fumarate 200 mg 03/22/17 22:00 03/23/17 09:35 Seroquel - PO 200 mg BID KENNEDI Administration ASSESSMENT AND PLAN:
[2017-03-23 12:57] VITALS: BP 111/83; PULSE 76; TEMP 98.4
--- NOTE | 2017-03-23 16:05 | PATH ---
Surgical Pathology Report Patient Name: KIM CHRISTINE Med. Rec. #: [id number] /Age/Gender: 1965 (Age: 52) / F Account: [id number] Location: [facility] MED/SURG Taken: 03/21/2017 Received: 03/22/2017 Reported: 03/23/2017 Physicians: Campos Mehta M.D. Specimen(s) Received BX MID ESOPHAGUS Clinical History Chest pain, food impaction Esophageal stricture Final Diagnosis MID ESOPHAGUS, BIOPSY: SQUAMOUS MUCOSA WITH REACTIVE CHANGES, ACUTE INFLAMMATION AND ULCERATION. FEW EOSINOPHILS PRESENT. NO FUNGAL ORGANISMS IDENTIFIED ON PAS STAIN. Electronically Signed Astrid Choe M.D. Gross Description Received in formalin, labeled "biopsy mid esophagus" are 4 segura, irregular portions of soft tissue ranging from 0.1-0.6 cm. in greatest dimension. The specimens are submitted in toto in one cassette. 03/22/2017 saudi03/22/2017
--- NOTE | 2017-03-23 19:31 | DS ---
Physical Exam: SUBJECTIVE: Patient seen and examined at bedside. Patient states she feel better today. No events overnight. OBJECTIVE: Vital Signs Period Temp Pulse Resp BP Sys/Lester Pulse Ox Last 24 Hr 98.2 F-98.5 F 63-76 20-20 111-161/83-95 98-99 PHYSICAL EXAM GENERAL: The patient is awake, alert, and fully oriented, in no acute distress. HEAD: Normal with no signs of trauma. EYES: extraocular movements intact, sclera anicteric, conjunctiva clear. NECK: Trachea midline, full range of motion, supple. LUNGS: Breath sounds equal, clear to auscultation bilaterally, no wheezes, no crackles, no accessory muscle use. HEART: Regular rate and rhythm, S1, S2 without murmur, rub or gallop. ABDOMEN: Soft, nontender, nondistended, normoactive bowel sounds, no guarding, no rebound, no hepatosplenomegaly, no masses. EXTREMITIES: 2+ pulses, warm, well-perfused, no edema. NEUROLOGICAL: Cranial nerves II through X grossly intact. Normal speech, gait not observed. PSYCH: Normal mood, normal affect. SKIN: Warm, dry, normal turgor, no rashes or lesions noted. LABS Laboratory Results - last 24 hr 03/23/17 03/23/17 06:25 06:25 WBC 4.3 RBC 4.76 Hgb 12.2 Hct 37.9 MCV 79.6 L MCH 25.5 L MCHC 32.1 RDW 14.5 Plt Count 199 MPV 7.6 Sodium 139 Potassium 3.6 Chloride 100 Carbon Dioxide 33 H Anion Gap 6 L BUN 9 Creatinine 0.8 Creat Clearance w eGFR > 60 Random Glucose 94 D Calcium 8.2 L Phosphorus 3.4 Magnesium 2.2 Total Bilirubin 0.4 D AST 28 D ALT 26 D Alkaline Phosphatase 92 Total Protein 7.3 Albumin 3.1 L HOSPITAL COURSE: Date of Admission:03/21/17 The patient is a 52 yo f w/ PMH HIV on HAART and esophageal stricture comes into the ED c/o a 1 day history of epigastric burning as well as nausea and vomiting. In the ED she was found to have a low grade fever to 100.8, tachycardia to 129 and RR 28. The patient was seen by GI and underwent an upper GI endoscopy with dilation of esophageal stricture on 03/[address] Pena. She was admitted after the procedure. She was treated with zofran, unasyn and protonix. Both an admission and repeat CXR were WNL, prompting d/c of ABX. She improved clinically and was discharged on 40mg Protonix PO daily and instructions to follow up with Dr. Pena in 2 weeks for outpatient treatment. She was also instructed to follow up with her PCP within one week of discharge. Date of Discharge: 03/23/17 Minutes to complete discharge: 20 Discharge Summary Reason For Visit: CHEST PAIN Current Active Problems Chest pain (Acute) Esophageal stricture (Acute) HIV (human immunodeficiency virus infection) (Chronic) Condition: Improved - Instructions Diet, Activity, Other Instructions: You were admitted to the hospital for the treatment of the stricture of your esophagus. Please resume taking all of your home medications tomorrow. We are also sending you home on a new medication to decrease the burning in your esophagus. This new medication is called Protonix. You should take 40mg of this medication daily. You should also follow up with Dr. Pena in 2 weeks. You should follow up with your primary care doctor within on eweek of discharge. If youbegin to experience fevers, chills or if any of your symptoms get worse, please call your doctor or return to the ED. DR. PENA APPOINTMENT FOR APRIL 06, 2017 AT 2PM Referrals: Dulce Wu NP [Primary Care Provider] - Ramesh Pena MD [Staff Physician] - Disposition: HOME - Home Medications Comprehensive Discharge Medication List: Ambulatory Orders Methadone [Dolophine -] 180 mg PO DAILY 06/27/16 Multivitamin-Min/Iron/FA/Vit K [Multi For Her Softgel] 1 each PO DAILY #30 capsule 09/12/16 Acetaminophen [Tylenol .Regular Strength -] 650 mg PO Q6H PRN #60 tablet Docusate Sodium [Colace -] 100 mg PO TID #90 capsule 01/11/17 Dolutegravir Sodium [Tivicay] 50 mg PO DAILY #30 tablet 01/11/17 Emtricitabine/Tenofov Alafenam [Descovy 200-25 mg Tablet] 1 each PO DAILY #30 tablet 01/11/17 Arm Brace [Wrist Brace] 1 each ASDIR #1 each 01/16/17 Mirtazapine [Remeron -] 30 mg PO HS #7 tablet 02/20/17 Polyethylene Glycol 3350 [Miralax 119 gm Btl -] 17 gm PO DAILY PRN #1 bottle 04/28 Quetiapine Fumarate [Seroquel -] 200 mg PO BID #14 tab 02/20/17 Emtricitabine/Tenofov Alafenam [Descovy 200-25 mg Tablet] 1 each PO DAILY Pantoprazole Sodium [Protonix -] 40 mg PO DAILY #30 tab 03/23/17 Problem List - Problems (1) Chest pain Code(s): R07.9 - CHEST PAIN, UNSPECIFIED (2) Esophageal stricture Code(s): K22.2 - ESOPHAGEAL OBSTRUCTION (3) HIV (human immunodeficiency virus infection) Code(s): Z21 - ASYMPTOMATIC HUMAN IMMUNODEFICIENCY VIRUS INFECTION STATUS (4) Depression Code(s): F32.9 - MAJOR DEPRESSIVE DISORDER, SINGLE EPISODE, UNSPECIFIED This patient is new to me today: No Emergency Visit: Yes ED Registration Date: 03/21/17 Care time: The patient presented to the Emergency Department on the above date and was hospitalized for further evaluation of their emergent condition. Critical Care patient: No - Discharge Referral Referred to [facility] Med P.C.: No
== END 2017-03-23 12:52 | disposition home or self-care (01) | DRG 243 ==
LOC: JER 12:35 → JERBED 16:03 → J4W 20:03 → J8W 03-22 18:30
PROVIDERS: ADMIT Internal Medicine; ATTEND Internal Medicine
PROC: 0DB58ZX Excision of Esophagus, Via Natural or Artificial Opening Endoscopic, Diagnostic (ICD-10-PCS; 2017-03-21)
PROC: 0D758ZZ Dilation of Esophagus, Via Natural or Artificial Opening Endoscopic (ICD-10-PCS; principal; 2017-03-21 15:00)
DX: K22.2 Esophageal obstruction (principal); E87.2 Acidosis; R13.10 Dysphagia, unspecified; F11.20 Opioid dependence, uncomplicated; R07.89 Other chest pain; I10 Essential (primary) hypertension; D64.9 Anemia, unspecified; Z21 Asymptomatic human immunodeficiency virus [HIV] infection status; E78.5 Hyperlipidemia, unspecified; F32.9 Major depressive disorder, single episode, unspecified; F17.210 Nicotine dependence, cigarettes, uncomplicated; F14.10 Cocaine abuse, uncomplicated; E78.00 Pure hypercholesterolemia, unspecified
CPT/HCPCS: 36415; 71010-TC; 80053; 82550; 83605; 83690; 83735; 84100; 84484; 84703; 85025; 85027; 85610; 85730; 86850; 86900; 86901; 87040; 88305-TC; 93005; 93010; 94760; 97116-GP; 97161-GP; 99284-25

== ENCOUNTER → 2019-02-14 | Outpatient (CLI) | payer OTHER | LOC: YHH 15:42 ==

== ENCOUNTER 2020-03-05 13:33 | Emergency (ER) | payer OTHER ==
[2020-03-05 13:56] VITALS: BMI 35.2
--- NOTE | 2020-03-05 14:09 | PDOC ---
History of Present Illness - General Chief Complaint: Headache Stated Complaint: HEADACHE Time Seen by Provider: 03/05/20 13:58 History Source: Patient - History of Present Illness Initial Comments: 03/05/20 14:34 55F w/hx HIV (controlled), HTN, HLD p/w 7 days of worsening L sided headache, chills. She reports taking acetaminophen, motrin which has improved but not fully relieved symptoms. She reports intermittent chills, no measured fevers at home. No prior hx of migraines and no regular headaches. She reports some generalized weakness, but denies any vertigo, lightheadedness, difficulty ambulating, neck pain, or vision changes. She reports some pain with eye movement. Headache localized to L side of head, throbbing, 7/10, non-radiating. Past History - Medical History Allergies/Adverse Reactions: Allergies Allergy/AdvReac Type Severity Reaction Status Date / Time No Known Allergies Allergy Verified 03/21/17 13:26 Home Medications: Ambulatory Orders Methadone [Dolophine -] 150 mg PO DAILY 06/27/16 Blood Pressure Kit Zo Louis [Blood Pressure Monitor] 1 each STEPHANIE ASDIR #1 kit 08/28/17 Naproxen [EC-Naprosyn] 375 mg PO Q12H PRN #20 tablet. 06/11/19 Miscellaneous Medical Supply [Glucometer Device] 1 each CARIDAD ASDIR #1 kit 07/02/19 Acetaminophen [Tylenol .Regular Strength -] 650 mg PO Q6H PRN #60 tablet 07/11/19 Fluticasone Prop 0.05% Nasal [Flonase -] 1 - 2 spray NS DAILY #1 spray.pump 07/11/19 Guaifenesin/D-Methorphan Hb [Diabetic Tussin Dm Liquid] 10 ml PO Q4H PRN #240 ml 07/11/19 Sodium Chloride [Saline Nasal Mist] 1 - 2 sprays NS PRN #1 mist 07/11/19 Paroxetine HCl [Paxil] 10 mg PO HS #14 tablet 10/30/19 Albuterol 0.083% Nebulizer [place] [Ventolin 0.083% Nebulizer Soln -] 1 - 2 neb NEB Q6H PRN #120 vial 12/09/19 Albuterol Sulfate Inhaler - [Ventolin HFA Inhaler -] 1 - 2 inh PO Q6H PRN #1 inhaler 12/09/19 Alcohol Antiseptic Pads [Alcohol Prep Pads] 1 each TP TID #1 box 12/09/19 Bictegrav/Emtricit/Tenofov Ala [Biktarvy 50-200-25 mg Tablet] 1 each PO DAILY # 30 tablet 12/09/19 Docusate Sodium [Colace -] 1 cap PO TID #90 capsule 12/09/19 Enalapril Maleate [Vasotec -] 1 tab PO DAILY #30 tablet 12/09/19 Famotidine [Pepcid -] 1 tab PO DAILY PRN #30 tablet 12/09/19 Fluticasone Propionate [Flovent Diskus] 1 inh IH BID #1 disk.w.dev 12/09/19 Gemfibrozil [Lopid -] 1 tab PO BID #60 tablet 12/09/19 Lancets [Lancets Ultra Thin] 1 each MC TID #100 each 12/09/19 Loratadine [Claritin -] 1 tab PO DAILY PRN #30 tablet 12/09/19 Miscellaneous Medical Supply [Glucometer Test Strips #100] 1 each CARIDAD TID #1 box 12/09/19 Multivit-Min/Iron/Folic Acid/K [Multi For Her Softgel] 1 each PO DAILY #30 capsule 12/09/19 Clotrimazole [Clotrimazole AF] 1 applic TP BID #30 cream..g. 12/27/19 Nicotine [Nicotine Patch 14mg/24 hr] 1 each TD DAILY #1 box 12/27/19 metFORMIN HCL [Metformin HCl] 500 mg PO BID #60 tablet 12/27/19 Ergocalciferol (Vitamin D2) [Vitamin D2] 50,000 unit PO WEEKLY #4 capsule 12/28/19 Anemia: Yes Asthma: No Cancer: No Cardiac Disorders: No CVA: No COPD: No CHF: No Dementia: No Diabetes: Yes GI Disorders: Yes (STRCTURE OF THE ESOPHAGUS,GASTRITIS) Disorders: No HTN: Yes Hypercholesterolemia: Yes Liver Disease: No Seizures: No Thyroid Disease: No Lung CA: Yes (depression) - Surgical History Abdominal Surgery: No Appendectomy: No Cardiac Surgery: No Cholecystectomy: Yes Lung Surgery: No Neurologic Surgery: No Orthopedic Surgery: No - Reproductive History Is Patient Now?: No - Psycho-Social/Smoking History Smoking History: Current every day smoker Have you smoked in the past 12 months: Yes Number of Cigarettes Smoked Daily: 10 Cigars Per Day: 0 Information on smoking cessation initiated: Yes 'Breaking Loose' booklet given: 06/28/16 - Substance Abuse Hx (Audit-C & DAST Scrn) How often the patient has a drink containing alcohol: Never Score: In Men: 4 or > Positive; In Women: 3 or > Positive: 0 Screen Result (Pos requires Nsg. Audit-10AR): Negative In the last yr the pt used illegal drug/Rx for NonMed reason: No Score: Yes response is considered Positive: 0 Screen Result (Positive result requires Nsg. DAST-10): Negative Review of Systems - Review of Systems Able to Perform ROS?: Yes Comments:: 03/05/20 15:11 GENERAL/CONSTITUTIONAL: Chills, weakness. No fever HEAD, EYES, EARS, NOSE AND THROAT: No change in vision. No ear pain or d ischarge. No sore throat. CARDIOVASCULAR: No chest pain or shortness of breath RESPIRATORY: No cough, wheezing, or hemoptysis. GASTROINTESTINAL: No nausea, vomiting, diarrhea or constipation. GENITOURINARY: No dysuria, frequency, or change in urination. MUSCULOSKELETAL: No joint or muscle swelling or pain. No neck or back pain. SKIN: No rash NEUROLOGIC: Headache. No vertigo, loss of consciousness, or change in strength/sensation. ENDOCRINE: No increased thirst. No abnormal weight change HEMATOLOGIC/LYMPHATIC: No anemia, easy bleeding, or history of blood clots. ALLERGIC/IMMUNOLOGIC: No hives or skin allergy. *Physical Exam - Vital Signs Last Vital Signs Temp Pulse Resp BP Pulse Ox 99.8 F H 114 H 24 H 158/112 H 97 03/05/20 13:48 03/05/20 13:48 03/05/20 13:48 03/05/20 13:48 03/05/20 13:48 - Physical Exam 03/05/20 15:12 GENERAL: Fatigued appearing. Awake, alert, and fully oriented, in no acute distress HEAD: No signs of trauma, normocephalic, atraumatic EYES: PERRLA, EOMI, sclera anicteric, conjunctiva clear ENT: Auricles normal inspection, hearing grossly normal, nares patent, oropharynx clear without exudates. Moist mucosa NECK: Negative kernig, brudzinski signs. Normal ROM, supple, no lymphadenopathy, JVD, or masses LUNGS: No distress, speaks full sentences, clear to auscultation bilaterally HEART: Regular rate and rhythm, normal S1 and S2, no murmurs, rubs or gallops, peripheral pulses normal and equal bilaterally. ABDOMEN: Soft, nontender, normoactive bowel sounds. No guarding, no rebound. No masses EXTREMITIES : Normal inspection, Normal range of motion, no edema. No clubbing or cyanosis NEUROLOGICAL: Cranial nerves II through XII grossly intact. Normal speech, normal gait, no focal sensorimotor deficits SKIN: Warm, Dry, normal turgor, no rashes or lesions noted ED Treatment Course - LABORATORY CBC & Chemistry Diagram: 03/05/20 14:00 03/05/20 14:00 Medical Decision Making - Medical Decision Making 03/05/20 15:14 55F w/hx HIV, HTN, HLD p/w 7 days of progressively worsening L sided headache, chills, borderline oral temp in ED likely representing fever. Ddx meningitis, migraine, uncomplicated headache. Plan: CT Head CBC CMP EKG CXR POC glucometry Blood cultures Acetaminophen 1L LR LP Pending CT Head Dispo: Pending labs, imaging Discharge - Discharge Information Problems reviewed: Yes Clinical Impression/Diagnosis: Headache Qualifiers: Headache type: unspecified Headache chronicity pattern: acute headache Intractability: not intractable Qualified Code(s): R51 - Headache Condition: Stable Disposition: HOME - Admission No - Follow up/Referral Referrals: Dulce Wu, MOTOR VEHICLE REPRESENTATIVE [Primary Care Provider] - - Patient Discharge Instructions Patient Printed Discharge Instructions: DI for Headache Additional Instructions: You were seen in the ER for headache. Your bloodwork and CT scan were normal. Follow up with your primary care provider as soon as possible, in the next 2-3 days. Return to the ER if you develop worsening headache, high fevers, neck pain and stiffness, confusion, difficulty breathing, or chest pain. - Post Discharge Activity
[2020-03-05] MEDS ORDERED: LACTATED RINGERS SOLUTION 1000 ML INFUS.BAG IV ONE (14:32)
[2020-03-05] MEDS ORDERED: ACETAMINOPHEN 500 MG TABLET (FP) PO ONE (14:32)
[2020-03-05] MEDS ORDERED: METOCLOPRAMIDE HCL INJECTION 10 MG/2 ML VIAL IVPUSH ONE (14:32)
[2020-03-05] MEDS ORDERED: METOCLOPRAMIDE HCL INJECTION 10 MG/2 ML VIAL ONE (14:36)
[2020-03-05] MEDS ORDERED: ACETAMINOPHEN 325 MG TABLET (FP) ONE (14:36)
[2020-03-05 14:50] LABS: BASO % 0.2 % (0-2.0); EOS % 0.2 % (0-4.5); HEMOGLOBIN 14.7 GM/dL (10.7-15.3); MCH 28.2 pg (25.7-33.7); MCHC 33.4 g/dl (32.0-36.0); MEAN CELL VOLUME 84.4 fl (80-96); MEAN PLT VOLUME 8.4 fl (7.5-11.1); MONO % 7.7 % (3.8-10.2); NEUT % 76.9 % (42.8-82.8); PLATELET COUNT 173 K/MM3 (134-434); RBC 5.21 M/mm3 (3.60-5.2); RDW 12.8 % (11.6-15.6); WHITE BLOOD COUNT 3.5 K/mm3 (4.0-10.0)
[2020-03-05 14:56] LABS: INR 1.07 (0.83-1.09); PROTHROMBIN TIME (PATIENT) 12.6 SEC (9.7-13.0)
[2020-03-05 14:59] LABS: ACTIVATED PTT 31.2 SECONDS (25.2-36.5)
[2020-03-05 15:22] LABS: ALBUMIN 3.5 g/dl (3.4-5.0); ALK PHOS 88 U/L (45-117); ANION GAP 7 MMOL/L (8-16); BILIRUBIN,TOTAL 0.2 mg/dL (0.2-1); BLOOD UREA NITROGEN 9.8 mg/dL (7-18); CALCIUM 8.5 mg/dL (8.5-10.1); CHLORIDE 99 mmol/L (98-107); CO2 30 mmol/L (21-32); CREATININE 0.7 mg/dL (0.55-1.3); GLUCOSE,RANDOM 241 mg/dL (74-106); POTASSIUM 3.6 mmol/L (3.5-5.1); SGOT/AST 29 U/L (15-37); SGPT/ALT 39 U/L (13-61); SODIUM 136 mmol/L (136-145); TOT PROT 7.7 g/dl (6.4-8.2)
--- OUTSIDE RECORDS SUMMARY | 2020-03-05 15:36 | XMS ---
:1965 Author Organization [facility] Care Team Providers Name Role Phone ED STAFF PHYSICIAN, STAFF Unavailable [facility] Unavailable Unavailable ED STAFF PHYSICIANIRVIN Unavailable Unavailable Re-disclosure Warning The records that you are about to access may contain information from federally- assisted alcohol or drug abuse programs. If such information is present, then the following federally mandated warning applies: This information has been disclosed to you from records protected by federal confidentiality rules (42 CFR part 2). The federal rules prohibit you from making any further disclosure of this information unless further disclosure is expressly permitted by the written consent of the person to whom it pertains or as otherwise permitted by 42 CFR part 2. A general authorization for the release of medical or other information is NOT sufficient for this purpose. The Federal rules restrict any use of the information to criminally investigate or prosecute any alcohol or drug abuse patient.The records that you are about to access may contain highly sensitive health information, the redisclosure of which is protected by Article 27-F of the [facility] Public Health law. If you continue you may haveaccess to information: Regarding HIV / AIDS; Provided by facilities licensed or operated by the [facility] Office of Mental Health; or Provided by the [facility] Office for People With Developmental Disabilities. If such information is present, then the following [facility] mandated warning applies: This information has been disclosed to you from confidential records which are protected by state law. State law prohibits you from making any further disclosure of this information without the specific written consent of the person to whom it pertains, or as otherwise permitted by law. Any unauthorized further disclosure in violation of state law may result in a fine or longterm sentence or both. A general authorization for the release of medical or other information is NOT sufficient authorization for further disclosure. Encounters Encounter Providers Location Date Indications Data Source(s ) Outpatient Attender: [id number] 01/11/2020 [facility] ([facility] 11:30:45 AM Care [facility]) EDT Patient admitted. Unlisted evaluation 12/16/2019 01:00:00 [facility] (Mental and management PM EDT [facility] [place]) Unlisted evaluation 12/02/2019 04:30:00 [facility] (M[facility] and management PM [facility] 11:42:19 [facility] AM EDT [facility] ) Patient admitted. Outpatient Attender: [facility] 07/30/2019 11:56:24 AM [facility] ([facility]) Patient admitted. Emergency Attender: IRVIN ED STAFF H 06/27/2019 10:11:00 AM [facility] PHYSICIANAttender: STAFF ED EST - 06/27/2019 [facility] STAFF PHYSICIANAdmitter: 01:36:00 PM EST IRVIN ED STAFF PHYSICIAN Patient discharged. Outpatient 08/31/2018 08:11:00 AM EDT [facility] ([facility]) Insurance Providers Payer name Policy type Policy ID Covered Covered constitution party's Policy P mari / Coverage constitution party ID relationship to Tanner Inf ormation type tanner [employer] [place]ICAID [id number] SP [id number] [facility] MEDICAID [id number] SP [id number] [facility] HEALTH [id number] SP [id number] [facility]ARE [place] [id number] SP [id number] [facility] [id number] 01 [id number] MEDICAID [id number] [facility] [id number] METHADONE SP MAINTENANCE PROGRAM [employer] HEALTH [id number] SP [id number] [facility]ARE [place] [id number] SP [id number] [facility] [id number] S [id number] [facility] [place] th [id number] S [id number] Options MKD Dental [id number] S [id number] E-0 [facility] MK[facility] Medicaid [id number] S [id number] Regular Clinic Visit MV Medicaid [id number] S [id number] Managed Care Problems, Conditions, and Diagnoses Code Display Name Description Problem Type Effective Data Sour ce(s) Dates [id number] Generalized Generalized Complaint 12/16/2019 [facility] anxiety disorder anxiety disorder 04:15:00 PM ( Mental Health EDT [facility]) E11.9 Type 2 diabetes TYPE 2 DIABETES Diagnosis 06/27/2019 Pam Lopez mellitus without MELLITUS WITHOUT 10:11:00 AM edical Center complications COMPLICATIONS EST I10 Essential ESSENTIAL Diagnosis 06/27/2019 [facility] (primary) (PRIMARY) 10:11:00 AM Medical Cente r hypertension HYPERTENSION EST Social History Code Duration Value Status Description Data Source(s ) Smoking 06/27/2019 Denies Ever completed Denies Ever Smoked [facility] 10:45:00 AM EST Smoked Medical C enter Smoking 06/27/2019 Denies Ever completed Denies Ever Smoked [facility] 10:30:00 AM EST Smoked Medical C enter Smoking 06/27/2019 Denies Ever completed Denies Ever Smoked [facility] 10:20:00 AM EST Smoked Medical C enter Vital Signs ID Date Data Source UNK Name Value Range Interpretation Code Description Data Source(s) Respiratory rate 19 /min 19 /min [facility] Heart rate 113 /min 113 /min [facility] Diastolic blood 109 mm[Hg] 109 mm[Hg] [facility] pressure Medical Center Systolic blood 209 mm[Hg] 209 mm[Hg] [facility] pressure Medical Center Body weight 100.377578 100.274909 kg [facility] Measured kg [facility] Body temperature 36.992480 36.888829 [facility] Respiratory rate 19 /min 19 /min [facility] Oxygen saturation 97 % 97 % [facility] eva in Arterial blood [facility] by Pulse oximetry Heart rate 117 /min 117 /min [facility] Body height 170.545873 170.685087 cm [facility] Diastolic blood 97 mm[Hg] 97 mm[Hg] [facility] Systolic blood 165 mm[Hg] 165 mm[Hg] [facility] pressure [facility] Center Body mass index 34.5 kg/m2 34.5 kg/m2 [facility] (BMI) [Ratio] Medical [facility]
[2020-03-05 16:41] VITALS: BP 138/84; PULSE 74
--- NOTE | 2020-03-05 17:12 | PDOC ---
Documentation entered by Deonte Porter SCRIBE, acting as scribe for Cesar Stone MD. Cesar Stone MD: This documentation has been prepared by the scribe, Deonte Poretr SCRIBE, under my direction and personally reviewed by me in its entirety. I confirm that the documentation accurately reflects all work, treatment, procedures, and medical decision making performed by me. Attending Attestation - Resident Resident Name: VeronicaSheldon - ED Attending Attestation I have performed the following: I have examined & evaluated the patient, The case was reviewed & discussed with the resident, I agree w/resident's findings & plan, Exceptions are as noted - HPI HPI: 03/05/20 15:19 The patient is a 55year old female with a significant past medical history of esophageal stricture, HIV (undetectable viral load, on HAART therapy), HTN, HLD, anemia and depression who presents to the emergency department for evaluation of a headache that began gradually about 1 week ago. The patient describes pain as 8/10, throbbing, and located nonradiating on the left side of her head. She also endorses intermittent chills, pain with eye movement, and generalized weakness. The patient notes taking acetaminophen and motrin to some relief. The patient denies chest/abdominal/back pain, cough, and shortness of breath. Denies fever, nausea, vomiting, and/or any GI symptoms. Denies any symptoms. Denies any other symptoms. Allergies: NKA Past surgical history: None Social history: Current everyday smoker, cocaine use PCP: Dulce Jaime - Physicial Exam PE: 03/05/20 14:34 GENERAL: The patient is awake, alert, and fully oriented, Nontoxic - in no acute distress. HEAD: Normocephalic, atraumatic. EYES: extraocular movements intact, sclera anicteric, conjunctiva clear. ENT: Normal voice, Moist mucous membranes. NECK: Normal range of motion, supple without lymphadenopathy, JVD, or masses. Neg kernigs/bruzinski LUNGS: Breath sounds equal, clear to auscultation bilaterally. No wheezes, no crackles, no rales. HEART: Regular rate and rhythm, normal S1 and S2 without murmur, rub or gallop. ABDOMEN: Soft, nontender, normoactive bowel sounds. No guarding, no rebound. N o masses. EXTREMITIES: Normal range of motion, no edema. No clubbing or cyanosis. No cords, erythema, or tenderness. NEUROLOGICAL: No facial asymmetry, Normal speech, normal gait. PSYCH: Normal mood, normal affect. SKIN: Warm, Dry, normal turgor, no rashes or lesions noted. - Medical Decision Making 03/05/20 14:38 55y F hx of htn, hl, HIV (undetectable) presnts with 7 days of gradual onset of L sided headache. Headache alleviated with tylenol. no associated photophobia, neck pain/stifness, fever, vision changes, focal numbness/tingling/weakness. No recent travel or known sick contacts. Pt notes that she usually uses corrective lenses, but hasnt been as she has been watching more on her phone. on exam pt well appearing in no distress unremarkable exam including nromal neuro and no menigial signs suspect tension/migrain headache, possibly due to dehdyration/eye strain will ck labs will treat smptoms consider menigitis,however low suspicion as pt is very well appearng without any mengineal signs, more likely tension headache 03/05/20 17:11 pf feeling significant improved vitals noramlized repeat neck exam unremarkble will dc the pt with pmd fu covid test sent to r/o covid return preautions were discussed I discussed the physical exam findings, ancillary test results and final diagnoses with the patient. I answered all of the patient's questions. The patient was satisfied with the care received and felt comfortable with the discharge plan and treatment plan. The patient will call their primary care physician within 24 hours to arrange follow-up and will return to the Emergency Department with any new, persistent or worsening symptoms. Heart Score/ECG Review - ECG Impressions Comment:: 03/05/20 15:00 Twelve-lead EKG was performed and reviewed by me. There is normal sinus rhythm with a normal rate. Rate of 89 The axis is normal. The intervals are normal. There is normal R wave progression nonspecific TWI Discharge - Discharge Information Problems reviewed: Yes Clinical Impression/Diagnosis: Headache Qualifiers: Headache type: unspecified Headache chronicity pattern: acute headache Intractability: not intractable Qualified Code(s): R51 - Headache Condition: Stable Disposition: HOME - Additional Discharge Information Prescriptions: Metoclopramide HCl [Reglan] 10 mg PO BID PRN 5 Days #10 tablet PRN Reason: Headache - Follow up/Referral Referrals: Dulce Wu [facility] [Primary Care Provider] - - Patient Discharge Instructions Patient Printed Discharge Instructions: DI for Headache Additional Instructions: You were seen in the ER for headache. Your bloodwork and CT scan were normal. Follow up with your primary care provider as soon as possible, in the next 2-3 days. Return to the ER if you develop worsening headache, high fevers, neck pain and stiffness, confusion, difficulty breathing, or chest pain. - Post Discharge Activity
[2020-03-05 17:58] VITALS: TEMP 99
--- NOTE | 2020-03-06 10:41 | EKG ---
Test Reason : Blood Pressure : / mmHG Vent. Rate : 089 BPM Atrial Rate : 089 BPM P-R Int : 160 ms QRS Dur : 072 ms QT Int : 340 ms P-R-T Axes : 050 060 044 degrees QTc Int : 413 ms POOR DATA QUALITY, INTERPRETATION MAY BE ADVERSELY AFFECTED NORMAL SINUS RHYTHM NONSPECIFIC T WAVE ABNORMALITY ABNORMAL ECG WHEN COMPARED WITH ECG OF 27-DEC-2019 11:40, QT HAS LENGTHENED Confirmed by JOANN GALAN MD ([id number]) on 03/06/2020 10:40:47 AM Referred By: Confirmed By:JOANN GALAN MD
== END 2020-03-05 17:00 | disposition home or self-care (01) ==
LOC: JER 13:33
PROC: 3E033GC Introduction of Other Therapeutic Substance into Peripheral Vein, Percutaneous Approach (ICD-10-PCS; principal; 2020-03-05)
DX: R51 Headache (principal)
CPT/HCPCS: 36415; 70450-TC; 71045-TC-FY; 80053; 82550; 82962; 84484; 85025; 85610; 85730; 87040; 93005; 93010; 99285-25

== ENCOUNTER 2024-01-14 21:35 | Inpatient (IN) | payer OTHER ==
[2024-01-14 22:21] LABS: HEMATOCRIT 43.9 % (32.4-45.2); HEMOGLOBIN 14.7 GM/dL (10.7-15.3); MCH 27.8 pg (25.7-33.7); MCHC 33.6 g/dl (32.0-36.0); MEAN CELL VOLUME 82.8 fl (80-96); MEAN PLT VOLUME 7.9 fl (7.5-11.1); PLATELET COUNT 210 10^3/uL (134-434); RDW 13.6 % (11.6-15.6); WHITE BLOOD COUNT 5.9 K/mm3 (4.0-10.0)
[2024-01-14 22:27] LABS: INR 1.06 (0.83-1.09)
[2024-01-14 22:30] LABS: ACTIVATED PTT 32.2 SECONDS (25.2-36.5)
[2024-01-14 22:38] LABS: CHLORIDE 95 mmol/L (98-107); POTASSIUM 4.8 mmol/L (3.5-5.1); SODIUM 133 mmol/L (136-145)
[2024-01-14 22:40] LABS: CALCIUM 8.9 mg/dL (8.5-10.1)
[2024-01-14 22:41] LABS: ALBUMIN 3.1 g/dl (3.4-5.0); ANION GAP 7 mmol/L (4-13); BLOOD UREA NITROGEN 8.4 mg/dL (7-18); CO2 31 mmol/L (21-32)
[2024-01-14 22:44] LABS: CREATININE 0.8 mg/dL (0.55-1.3); SGOT/AST 136 U/L (15-37); SGPT/ALT 90 U/L (13-61)
[2024-01-14 22:45] LABS: BILIRUBIN,TOTAL 0.6 mg/dL (0.2-1)
[2024-01-14 22:46] LABS: TOT PROT 7.7 g/dl (6.4-8.2)
[2024-01-14 22:47] LABS: ALK PHOS 316 U/L (45-117)
[2024-01-14 22:53] LABS: GLUCOSE,RANDOM 402 mg/dL (74-106)
[2024-01-14] MEDS ORDERED: ACETAMINOPHEN INJECTION 100 ML IVPB ONE (22:54)
[2024-01-14 23:00] LABS: ANISOCYTOSIS 0; HELMET CELLS 0; HOWELL-JOLLY BODIES 0; MACROCYTOSIS 0; OVALOCYTE 0; ROULEAU 0; SICKELED CELLS 0; TARGET CELLS 0; TEAR DROP CELLS 0; TOXIC GRANULATION 0
[2024-01-14] MEDS: LACTATED RINGERS SOLUTION 1000 ML INFUS.BAG IV ONE (23:00)
[2024-01-14] MEDS: ACETAMINOPHEN 1000 MG/100 ML BAG IVPB ONE (23:00)
[2024-01-15] MEDS ORDERED: INSULIN ASPART SLIDING SCALE (NOVOLOG) 1 VIAL SQ ONE ×2 (04:24→08:12)
[2024-01-15] MEDS: INSULIN ASPART SLIDING SCALE (NOVOLOG) 1 VIAL SQ SCH (04:29)
[2024-01-15] MEDS ORDERED: ALBUTEROL SO4 HFA INHALER IH PRN (05:27)
[2024-01-15] MEDS ORDERED: ALBUTEROL SO4 0.083% IH SOL 2.5 MG/3 ML VIAL.NEB. NEB PRN (05:27)
[2024-01-15] MEDS ORDERED: BISACODYL 5 MG TABLET.DR (FP) PO PRN (05:27)
[2024-01-15] MEDS: INSULIN REGULAR HUMAN 100 UNITS/ML *VIAL IVPUSH ONE (06:07)
[2024-01-15] MEDS ORDERED: methaDONE HCL 10 MG TABLET PO ONE (07:00)
[2024-01-15] MEDS ORDERED: methaDONE HCL 10 MG TABLET ONE (07:41)
[2024-01-15] MEDS ORDERED: methaDONE HCL 40 MG DISPERSABLE TABLET ONE (07:41)
[2024-01-15] MEDS: INSULIN (LEVEMIR) 100 UNITS/ML UNITS SQ SCH (08:10)
[2024-01-15] MEDS: NICOTINE 7 MG/24 HOURS TOPICAL PATCH TD SCH (09:26)
[2024-01-15] MEDS: BICTEGRAV/EMTRICIT/TENOFOV (BIKTARVY) 50-200-25 MG TABLET PO SCH (09:26)
[2024-01-15] MEDS: ENALAPRIL MALEATE 10 MG TABLET PO SCH (09:26)
[2024-01-15] MEDS: CHOLECALCIFEROL (VIT D3) 1,000 UNIT (25 MCG) TABLET PO SCH (09:26)
[2024-01-15] MEDS ORDERED: DEXTROSE 5%-0.45% SALINE 1,000 ML IV SCH (17:15)
[2024-01-15 17:59] VITALS: BMI 29.0
[2024-01-15] MEDS ORDERED: MIRTAZAPINE 15 MG TABLET (FP) ONE (21:14)
[2024-01-15] MEDS: traZODone HCL 50 MG TABLET (FP) PO SCH (21:28)
[2024-01-15] MEDS: GABAPENTIN 100 MG CAPSULE PO SCH (21:28)
[2024-01-15] MEDS: MIRTAZAPINE 30 MG TABLET PO SCH (21:29)
[2024-01-15] MEDS: DOXEPIN HCL 25 MG CAPSULE PO SCH (21:47)
[2024-01-16] MEDS: LACTATED RINGERS SOLUTION 1,000 ML/1,000 ML INFUS.BAG IV SCH (04:28)
[2024-01-16] MEDS ORDERED: methaDONE HCL 10 MG TABLET PO SCH (09:45)
[2024-01-16 09:54] LABS: BASO % 0.6 % (0-2.0); EOS % 1.1 % (0-4.5); HEMATOCRIT 39.8 % (32.4-45.2); HEMOGLOBIN 13.6 GM/dL (10.7-15.3); LYMPH % 23.7 % (8-40); MCHC 34.1 g/dl (32.0-36.0); MEAN CELL VOLUME 81.9 fl (80-96); MONO % 9.1 % (3.8-10.2); NEUT % 65.5 % (42.8-82.8); PLATELET COUNT 199 10^3/uL (134-434); RBC 4.85 M/mm3 (3.60-5.2); RDW 13.4 % (11.6-15.6); WHITE BLOOD COUNT 4.8 K/mm3 (4.0-10.0)
[2024-01-16 10:15] LABS: POTASSIUM 3.4 mmol/L (3.5-5.1)
[2024-01-16 10:27] LABS: ALBUMIN 2.8 g/dl (3.4-5.0); BLOOD UREA NITROGEN 6.9 mg/dL (7-18); CALCIUM 9.1 mg/dL (8.5-10.1)
[2024-01-16 10:31] LABS: BILIRUBIN,TOTAL 0.8 mg/dL (0.2-1); CREATININE 0.8 mg/dL (0.55-1.3); TOT PROT 6.8 g/dl (6.4-8.2)
[2024-01-16] MEDS: NICOTINE 21 MG/24 HOURS TOPICAL PATCH TD SCH (10:38)
[2024-01-16] MEDS: FLUCONAZOLE 100 MG/NS 50 ML IVPB SCH (14:39)
[2024-01-16 15:45] VITALS: RESP 18
[2024-01-16] MEDS: POTASSIUM CHLORIDE ORAL LIQUID 20 MEQ/15 ML PO ONE (16:44)
[2024-01-16] MEDS: CASPOFUNGIN ACETATE 50 MG in SODIUM CHLORIDE 250 ML IVPB SCH (20:20)
[2024-01-16] MEDS ORDERED: MIRTAZAPINE 15 MG TABLET (FP) ONE (22:07)
[2024-01-16] MEDS: PANTOPRAZOLE 40 MG TABLET PO SCH (22:11)
[2024-01-17 09:22] LABS: HEMATOCRIT 40.6 % (32.4-45.2); HEMOGLOBIN 13.4 GM/dL (10.7-15.3); MCH 27.6 pg (25.7-33.7); MCHC 33.1 g/dl (32.0-36.0); MEAN CELL VOLUME 83.5 fl (80-96); MEAN PLT VOLUME 7.7 fl (7.5-11.1); PLATELET COUNT 202 10^3/uL (134-434); RBC 4.86 M/mm3 (3.60-5.2); RDW 13.6 % (11.6-15.6); WHITE BLOOD COUNT 4.1 K/mm3 (4.0-10.0)
[2024-01-17 09:33] LABS: POTASSIUM 3.2 mmol/L (3.5-5.1)
[2024-01-17 09:41] LABS: ALBUMIN 2.8 g/dl (3.4-5.0); BLOOD UREA NITROGEN 4.6 mg/dL (7-18); CALCIUM 8.8 mg/dL (8.5-10.1)
[2024-01-17 09:42] LABS: MAGNESIUM 1.8 mg/dL (1.8-2.4)
[2024-01-17 09:44] LABS: CREATININE 0.7 mg/dL (0.55-1.3); PHOSPHOROUS 3.6 mg/dL (2.5-4.9)
[2024-01-17 09:46] LABS: BILIRUBIN,TOTAL 0.8 mg/dL (0.2-1); TOT PROT 6.8 g/dl (6.4-8.2)
[2024-01-17] MEDS: ENOXAPARIN NA (PORCINE) 40 MG/0.4 ML DISP.SYRIN SQ SCH (10:24)
[2024-01-17] MEDS: POTASSIUM CHLORIDE TABS 20 MEQ TABLET.ER (FP) PO ONE ×3 (14:13→15:11)
[2024-01-17] MEDS ORDERED: MIRTAZAPINE 15 MG TABLET (FP) ONE (21:02)
[2024-01-18] MEDS: INSULIN (LEVEMIR) 100 UNITS/ML UNITS SQ SCH (06:26)
[2024-01-18 09:46] LABS: HEMATOCRIT 39.9 % (32.4-45.2); HEMOGLOBIN 13.1 GM/dL (10.7-15.3); MCH 27.6 pg (25.7-33.7); MCHC 32.9 g/dl (32.0-36.0); MEAN CELL VOLUME 83.9 fl (80-96); MEAN PLT VOLUME 8.1 fl (7.5-11.1); PLATELET COUNT 221 10^3/uL (134-434); RBC 4.76 M/mm3 (3.60-5.2); RDW 13.3 % (11.6-15.6); WHITE BLOOD COUNT 6.1 K/mm3 (4.0-10.0)
[2024-01-18 10:36] LABS: POTASSIUM 3.3 mmol/L (3.5-5.1)
[2024-01-18 10:41] LABS: ALBUMIN 2.9 g/dl (3.4-5.0); BLOOD UREA NITROGEN 3.2 mg/dL (7-18); CALCIUM 8.6 mg/dL (8.5-10.1)
[2024-01-18 10:44] LABS: BILIRUBIN,DIRECT 0.2 mg/dL (0.0-0.2); CREATININE 0.7 mg/dL (0.55-1.3)
[2024-01-18 10:45] LABS: BILIRUBIN,TOTAL 0.5 mg/dL (0.2-1); TOT PROT 6.9 g/dl (6.4-8.2)
[2024-01-18] MEDS: POTASSIUM CHLORIDE TABS 20 MEQ TABLET.ER (FP) PO SCH (17:06)
[2024-01-18 20:12] VITALS: BP 151/81; PULSE 72; TEMP 98.6
[2024-01-18] MEDS ORDERED: MIRTAZAPINE 15 MG TABLET (FP) ONE (21:02)
[2024-01-19 10:19] LABS: POTASSIUM 3.8 mmol/L (3.5-5.1)
[2024-01-19 10:20] LABS: HEMOGLOBIN 12.8 GM/dL (10.7-15.3); MCH 27.7 pg (25.7-33.7); MCHC 32.8 g/dl (32.0-36.0); MEAN CELL VOLUME 84.3 fl (80-96); MEAN PLT VOLUME 7.9 fl (7.5-11.1); PLATELET COUNT 249 10^3/uL (134-434); RBC 4.62 M/mm3 (3.60-5.2); RDW 13.7 % (11.6-15.6)
[2024-01-19 10:21] LABS: BLOOD UREA NITROGEN 3.2 mg/dL (7-18)
[2024-01-19 10:22] LABS: ALBUMIN 2.9 g/dl (3.4-5.0); CALCIUM 8.9 mg/dL (8.5-10.1)
[2024-01-19 10:24] LABS: CREATININE 0.7 mg/dL (0.55-1.3)
[2024-01-19 10:27] LABS: BILIRUBIN,TOTAL 0.4 mg/dL (0.2-1); TOT PROT 6.8 g/dl (6.4-8.2)
== END 2024-01-19 11:59 | disposition home or self-care (01) | DRG 243 ==
LOC: JER 21:35 → JERBED 01-15 01:42 → J6S 01-15 15:21
PROVIDERS: ADMIT Internal Medicine; ATTEND Internal Medicine
PROC: 0D738ZZ Dilation of Lower Esophagus, Via Natural or Artificial Opening Endoscopic (ICD-10-PCS; principal; 2024-01-16 13:30)
PROC: 05HY33Z Insertion of Infusion Device into Upper Vein, Percutaneous Approach (ICD-10-PCS; 2024-01-19)
DX: K22.2 Esophageal obstruction (principal); B37.81 Candidal esophagitis; E11.43 Type 2 diabetes mellitus with diabetic autonomic (poly)neuropathy; E11.65 Type 2 diabetes mellitus with hyperglycemia; F11.20 Opioid dependence, uncomplicated; I10 Essential (primary) hypertension; J45.909 Unspecified asthma, uncomplicated; Z21 Asymptomatic human immunodeficiency virus [HIV] infection status; E87.6 Hypokalemia; R74.01 Elevation of levels of liver transaminase levels; E78.5 Hyperlipidemia, unspecified
CPT/HCPCS: 0241U-QW; 36415; 36569; 71045-TC-FY; 74220-TC-FY; 76705-TC; 80048; 80053; 80076; 82550; 82962; 82977; 83036; 83690; 83735; 84100; 84484; 85025; 85027; 85610; 85730; 86705; 86850; 86900; 86901; 87340; 87517; 87902; 93005; 93010; 99285-25; J0131; J0637

== ENCOUNTER 2024-01-20 11:41 | Day surgery (SDC) | payer OTHER ==
[2024-01-20] MEDS: CASPOFUNGIN ACETATE 50 MG in SODIUM CHLORIDE 250 ML IVPB SCH (12:17)
[2024-01-20 13:39] VITALS: BP 125/77; PULSE 82; RESP 16; TEMP 98.4
== END 2024-01-20 13:34 | disposition home or self-care (01) ==
LOC: FINFUSION 11:41 → FM/S 11:42 → FINFUSION 13:34
PROVIDERS: ATTEND Internal Medicine
DX: B37.81 Candidal esophagitis (principal)
CPT/HCPCS: 96365; J0637

== ENCOUNTER 2024-01-21 11:23 | Day surgery (SDC) | payer OTHER ==
[2024-01-21] MEDS: CASPOFUNGIN ACETATE 50 MG in SODIUM CHLORIDE 250 ML IVPB ONE (12:12)
[2024-01-21 14:04] VITALS: BP 125/78; PULSE 80; RESP 18; TEMP 98.2
== END 2024-01-21 14:04 | disposition home or self-care (01) ==
LOC: FINFUSION 11:23 → FM/S 11:24 → FINFUSION 14:04
PROVIDERS: ATTEND Internal Medicine
DX: B37.81 Candidal esophagitis (principal)
CPT/HCPCS: 96365; J0637

== ENCOUNTER 2024-01-22 11:28 | Day surgery (SDC) | payer OTHER ==
[2024-01-22] MEDS: CASPOFUNGIN ACETATE 50 MG in SODIUM CHLORIDE 250 ML IVPB ONE (12:15)
[2024-01-22 12:40] LABS: HEMATOCRIT 41.1 % (32.4-45.2); HEMOGLOBIN 12.9 G/dL (10.7-15.3); MCH 26.8 pg (25.7-33.7); MCHC 31.3 g/dl (32.0-36.0); MEAN CELL VOLUME 85.8 fl (80-96); MEAN PLT VOLUME 8.1 fl (7.5-11.1); PLATELET COUNT 273.1 10^3/uL (134-434); RBC 4.79 10^6/uL (3.60-5.2); RDW 13.9 % (11.6-15.6); WHITE BLOOD COUNT 7.3 10^3/uL (4.0-10.8)
[2024-01-22 12:57] LABS: ALBUMIN 3.4 g/dl (3.4-5.0); BILIRUBIN,TOTAL 0.2 mg/dl (0.2-1); CALCIUM 9.1 mg/dl (8.5-10.1); CREATININE 0.7 mg/dl (0.6-1.3); POTASSIUM 3.6 mmol/L (3.5-5.1); TOT PROT 6.2 g/dl (6.4-8.2)
[2024-01-22 13:36] VITALS: BP 112/65; PULSE 71; RESP 16; TEMP 98.3
== END 2024-01-22 13:10 | disposition home or self-care (01) ==
LOC: FINFUSION 11:28 → FM/S 11:29 → FINFUSION 13:10
PROVIDERS: ATTEND Internal Medicine
DX: B37.81 Candidal esophagitis (principal)
CPT/HCPCS: 36415; 80053; 85027; 96365; J0637

== ENCOUNTER 2024-01-23 12:09 | Day surgery (SDC) | payer OTHER ==
[2024-01-23] MEDS: CASPOFUNGIN ACETATE 50 MG in SODIUM CHLORIDE 250 ML IVPB ONE (12:40)
[2024-01-23 14:22] VITALS: BP 135/75; PULSE 88; RESP 16; TEMP 98.1
== END 2024-01-23 14:00 | disposition home or self-care (01) ==
LOC: FINFUSION 12:09 → FM/S 12:12 → FINFUSION 14:00
PROVIDERS: ATTEND Internal Medicine
DX: B37.81 Candidal esophagitis (principal)
CPT/HCPCS: 96365; J0637

== ENCOUNTER 2024-01-24 11:25 | Day surgery (SDC) | payer OTHER ==
[2024-01-24] MEDS: CASPOFUNGIN ACETATE 50 MG in SODIUM CHLORIDE 250 ML IVPB ONE (11:50)
[2024-01-24 12:27] VITALS: BP 132/76; PULSE 74; RESP 16; TEMP 98.8
== END 2024-01-24 13:09 | disposition home or self-care (01) ==
LOC: FINFUSION 11:25 → FM/S 11:28 → FINFUSION 13:09
PROVIDERS: ATTEND Internal Medicine
DX: B37.81 Candidal esophagitis (principal)
CPT/HCPCS: 96365; J0637

== ENCOUNTER 2024-01-25 11:52 | Day surgery (SDC) | payer OTHER ==
[2024-01-25] MEDS: CASPOFUNGIN ACETATE 50 MG in SODIUM CHLORIDE 250 ML IVPB ONE (12:46)
[2024-01-25 13:30] LABS: HEMATOCRIT 43.3 % (32.4-45.2); HEMOGLOBIN 13.8 G/dL (10.7-15.3); MCHC 31.8 g/dl (32.0-36.0); MEAN CELL VOLUME 84.9 fl (80-96); MEAN PLT VOLUME 8.1 fl (7.5-11.1); PLATELET COUNT 317.1 10^3/uL (134-434); WHITE BLOOD COUNT 6.5 10^3/uL (4.0-10.8)
[2024-01-25 13:58] LABS: ALBUMIN 3.6 g/dl (3.4-5.0); ALK PHOS 179 U/L (45-117); ANION GAP 7 mmol/L (4-13); BILIRUBIN,TOTAL 0.3 mg/dl (0.2-1); CALCIUM 9.4 mg/dl (8.5-10.1); CHLORIDE 94 mmol/L (98-107); CO2 34 mmol/L (21-32); CREATININE 0.8 mg/dl (0.6-1.3); GLUCOSE,RANDOM 404 mg/dl (74-106); POTASSIUM 4.1 mmol/L (3.5-5.1); SGOT/AST 13 U/L (15-37); SGPT/ALT 17 U/L (7-52); SODIUM 135 mmol/L (136-145); TOT PROT 6.7 g/dl (6.4-8.2)
[2024-01-26 09:03] VITALS: BP 121/86; PULSE 69; RESP 16; TEMP 98.6
== END 2024-01-25 15:25 | disposition home or self-care (01) ==
LOC: FINFUSION 11:52 → FM/S 11:55 → FINFUSION 15:25
PROVIDERS: ATTEND Internal Medicine
DX: B37.81 Candidal esophagitis (principal)
CPT/HCPCS: 36415; 80053; 85027; 96365; J0637

== ENCOUNTER 2024-01-26 11:20 | Day surgery (SDC) | payer OTHER ==
[2024-01-26] MEDS: CASPOFUNGIN ACETATE 50 MG in SODIUM CHLORIDE 250 ML IVPB ONE (11:45)
[2024-01-26 13:01] VITALS: BP 138/79; PULSE 87; RESP 16; TEMP 98.8
== END 2024-01-26 13:02 | disposition home or self-care (01) ==
LOC: FINFUSION 11:20 → FM/S 11:22 → FINFUSION 13:02
PROVIDERS: ATTEND Internal Medicine
DX: B37.81 Candidal esophagitis (principal)
CPT/HCPCS: 96365; J0637

== ENCOUNTER 2024-01-27 11:24 | Day surgery (SDC) | payer OTHER ==
[2024-01-27] MEDS: CASPOFUNGIN ACETATE 50 MG in SODIUM CHLORIDE 250 ML IVPB SCH (11:55)
[2024-01-27 13:01] VITALS: BP 100/64; PULSE 71; RESP 14; TEMP 98.4
== END 2024-01-27 13:06 | disposition home or self-care (01) ==
LOC: FINFUSION 11:24 → FM/S 11:25 → FINFUSION 13:06
PROVIDERS: ATTEND Internal Medicine
DX: B37.81 Candidal esophagitis (principal)
CPT/HCPCS: 96365; J0637

== ENCOUNTER 2024-01-28 11:22 | Day surgery (SDC) | payer OTHER ==
[2024-01-28 12:51] LABS: ALBUMIN 3.7 g/dl (3.4-5.0); BILIRUBIN,TOTAL 0.3 mg/dl (0.2-1); CALCIUM 9.1 mg/dl (8.5-10.1); CREATININE 0.7 mg/dl (0.6-1.3); HEMATOCRIT 42.4 % (32.4-45.2); HEMOGLOBIN 13.6 G/dL (10.7-15.3); MCH 26.8 pg (25.7-33.7); MCHC 32.1 g/dl (32.0-36.0); MEAN CELL VOLUME 83.6 fl (80-96); MEAN PLT VOLUME 7.9 fl (7.5-11.1); POTASSIUM 4.1 mmol/L (3.5-5.1); RBC 5.07 10^6/uL (3.60-5.2); RDW 13.9 % (11.6-15.6); TOT PROT 6.6 g/dl (6.4-8.2); WHITE BLOOD COUNT 6.1 10^3/uL (4.0-10.8)
[2024-01-28] MEDS: CASPOFUNGIN ACETATE 50 MG in SODIUM CHLORIDE 250 ML IVPB ONE (13:17)
[2024-01-28 14:50] VITALS: BP 137/85; PULSE 78; RESP 16; TEMP 98.4
== END 2024-01-28 14:15 | disposition home or self-care (01) ==
LOC: FM/S 11:22 → FINFUSION 11:22
PROVIDERS: ATTEND Internal Medicine
DX: B37.81 Candidal esophagitis (principal)
CPT/HCPCS: 36415; 80053; 85027; 96365; J0637

== ENCOUNTER 2024-01-29 11:33 | Day surgery (SDC) | payer OTHER ==
[2024-01-29] MEDS: CASPOFUNGIN ACETATE 50 MG in SODIUM CHLORIDE 250 ML IVPB ONE (11:52)
[2024-01-29 12:02] VITALS: BP 149/75; RESP 18; TEMP 98.8
[2024-01-29 13:12] VITALS: PULSE 87
== END 2024-01-29 13:12 | disposition home or self-care (01) ==
LOC: FINFUSION 11:33 → FM/S 11:34 → FINFUSION 13:12
PROVIDERS: ATTEND Internal Medicine
DX: B37.81 Candidal esophagitis (principal)
CPT/HCPCS: 96365; 96366; J0637

== ENCOUNTER 2024-01-30 11:21 | Day surgery (SDC) | payer OTHER ==
[2024-01-30] MEDS: CASPOFUNGIN ACETATE 50 MG in SODIUM CHLORIDE 250 ML IVPB ONE (11:51)
[2024-01-30 12:20] VITALS: BP 132/76; PULSE 88; RESP 18; TEMP 98.1
== END 2024-01-30 12:57 | disposition home or self-care (01) ==
LOC: FINFUSION 11:21 → FM/S 11:22 → FINFUSION 12:57
PROVIDERS: ATTEND Internal Medicine
DX: B37.81 Candidal esophagitis (principal)
CPT/HCPCS: 96365; J0637

== ENCOUNTER 2024-01-31 11:27 | Day surgery (SDC) | payer OTHER ==
[2024-01-31] MEDS: CASPOFUNGIN ACETATE 50 MG in SODIUM CHLORIDE 250 ML IVPB ONE (12:00)
[2024-01-31 13:36] LABS: HEMATOCRIT 45.9 % (32.4-45.2); HEMOGLOBIN 14.5 G/dL (10.7-15.3); MCH 26.5 pg (25.7-33.7); MCHC 31.5 g/dl (32.0-36.0); MEAN CELL VOLUME 83.9 fl (80-96); MEAN PLT VOLUME 8.6 fl (7.5-11.1); PLATELET COUNT 264.4 10^3/uL (134-434); RBC 5.47 10^6/uL (3.60-5.2); RDW 13.9 % (11.6-15.6); WHITE BLOOD COUNT 5.9 10^3/uL (4.0-10.8)
[2024-01-31 13:54] LABS: ALBUMIN 3.7 g/dl (3.4-5.0); BILIRUBIN,TOTAL 0.3 mg/dl (0.2-1); CALCIUM 9.1 mg/dl (8.5-10.1); CREATININE 0.8 mg/dl (0.6-1.3); POTASSIUM 4.1 mmol/L (3.5-5.1); TOT PROT 7.2 g/dl (6.4-8.2)
[2024-01-31 14:27] VITALS: BP 140/74; PULSE 93; RESP 16; TEMP 98.6
== END 2024-01-31 13:30 | disposition home or self-care (01) ==
LOC: FINFUSION 11:27 → FM/S 11:30 → FINFUSION 13:30
PROVIDERS: ATTEND Internal Medicine
DX: B37.81 Candidal esophagitis (principal)
CPT/HCPCS: 36415; 80053; 85027; 96365; J0637